=== PATIENT | female | born 1960 | race Caucasian/White ===

== ENCOUNTER 2023-07-30 07:35 | Day surgery (SDC) | payer MEDICARE, BC, SELFPAY ==
--- NOTE | 2023-07-29 06:15 | EKG_ITS ---
[facility] Test Date: 2023-07-29 Pat Name: RAQUEL NEW Department: Room: - Gender: Female Rn First Assistant: DIALLO : 1960 Requested By: Austin Whitman Order Number: [id number] Reading MD: Austin Whitman Measurements Intervals [place] Rate: 71 P: 41 [place]: 136 QRS: 54 QRSD: 89 T: 59 QT: 358 QTc: 391 Interpretive Statements SINUS RHYTHM LOW QRS VOLTAGE IN PRECORDIAL LEADS Compared to ECG 10/10/2022 17:07:03 Low QRS voltage now present /store/S0/[id number].pdf
[2023-07-29 06:59] VITALS: BMI 31.4
[2023-07-29 08:53] LABS: Basophils % (Auto) 0 % (0-2.5); Eosinophils # (Auto) 0.3 Thou/mm3 (0.0-0.5); Eosinophils % (Auto) 7 % (0-10); Hematocrit 40.1 % (36.0-46.0); Hemoglobin 12.9 g/dL (12.0-16.0); Immature Granulocytes % (Auto) 0 % (0-0); Immature Granulocytes Auto 0.01 Thou/mm3 (0.00-0.00); Lymphocytes # (Auto) 0.8 Thou/mm3 (1.0-4.8); Lymphocytes % (Auto) 17 % (10-50); Mean Corpuscular HGB Conc 32.2 g/dl (31.0-37.0); Mean Corpuscular Hemoglobin 28.6 pg (25.0-35.0); Mean Corpuscular Volume 89 fL (80-100); Monocytes # (Auto) 0.4 Thou/mm3 (0.0-0.8); Monocytes % (Auto) 8 % (0-12); Neutrophils # (Auto) 3.2 Thou/mm3 (1.8-7.7); Neutrophils % (Auto) 68 % (37-80); Nucleated Red Blood Cell % 0 /100 WBC (0); Platelet Count 205 Thou/mm3 (140-440); RDW Standard Deviation 45.1 fL (36.4-46.3); Red Blood Count 4.51 Miln/mm3 (4.00-5.20); White Blood Count 4.7 Thou/mm3 (3.6-11.0)
[2023-07-29 09:16] LABS: Alanine Aminotransferase 46 U/L (10-49); Albumin, Serum 4.2 gm/dL (3.4-4.8); Albumin/Globulin Ratio 1.4 (1.2-2.2); Alkaline Phosphatase 142 U/L (46-116); Anion Gap 8 (7-16); Aspartate Amino Transferase 44 U/L (0-34); BUN/Creatinine Ratio 20 Ratio (12-20); Bilirubin,Total 0.2 mg/dL (0.3-1.2); Blood Urea Nitrogen 16 mg/dL (9-23); Calcium 9.2 mg/dL (8.3-10.6); Calcium (Corrected) 9.2 mg/dL (8.5-10.1); Carbon Dioxide 24.2 mMol/L (20.0-31.0); Chloride 109 mMol/L (98-107); Creatinine (Component) 0.8 mg/dL (0.6-1.3); Estimated Creatinine Clearance 73.1 mL/min (>60); Glucose 104 mg/dL (74-106); Osmolality,Calculated 282 (275-295); Potassium 4.5 mMol/L (3.4-5.1); Sodium 141 mMol/L (136-145); Total Protein 7.2 gm/dL (5.7-8.2); eGFR > 60 See Note
[2023-07-30] VITALS (8 sets, daily range): BP systolic 117–138; BP diastolic 80–98; PULSE 70–80; RESP 12–16; TEMP 36.3–36.7; O2SAT 91–97; BMI 31.2
[2023-07-30] MEDS: RINGERS LACTATED 1000 ML 1,000 ML 20 ML IV (08:32)
--- NOTE | 2023-07-30 10:16 | SUR.PHASEI ---
Pt arrived to PACU via gurney drowsy but arouses to verbal stimuli, breathing unlabored, dressing to left inguinal region clean, dry, and intact, report from Kolby ORTEGA and Dr Morgan.
--- NOTE | 2023-07-30 10:16 | PD.SUROPNT ---
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 After administration of general tracheal anesthesia, patient's left groin was prepped and draped in standard surgical manner. After administration of local anesthesia an approximately 4 cm incision was made in left inguinal crease and dissection was deepened into soft tissue. Fatou's fascia was divided. Patient was noted to have clustered and enlarged lymph nodes approximately 3 cm in diameter. The mass was circumferentially dissected off surrounding tissue. The smaller veins and lymphatic channels were ligated with application of endoclips. Hemostasis was adequate and satisfactory. The area was copiously and thoroughly washed and irrigated, all the fluids were suctioned and the suction fluid returned clear. There was no bleeding or lymph leak noted. Fascia reapproximated with interrupted sutures using 2-0 Vicryl. Subcutaneous tissue closed with interrupted sutures using 3-0 Vicryl and the incision was closed with 4-0 Monocryl in subcuticular fashion. Dermabond and pressure sterile dressings applied. Patient tolerated procedure well. She was extubated, breathing spontaneously and without difficulty and was transferred to postanesthesia care in stable condition. Instruments, needles and sponge counts were reported to be correct x 2. Anesthesia GETA and local Pathology / specimen Other (Left inguinal lymph nodes) Estimated Blood Loss 5 Condition Stable Disposition PACU Surgeon Austin Whitman MD Surgical Staff Operation Date: 07/30/23 10:00 Case Staff Anesthesiologist: Paras Morgan RNadjunct art history instructor: Karen Gonzales
[2023-07-30] MEDS: fentaNYL CIT INJ 50 mCg/ML AMP 2ML IV (10:38)
[2023-07-30] MEDS: HYDROcodone/APAP 5/325 TABLET 1 TAB PO (10:56)
--- NOTE | 2023-07-30 11:32 | SUR.PHASEII ---
Pt awake, alert, able to follow commands, breathing unlabored, dressing to left inguinal region clean, dry, and intact, pt able to dress self and ambulate to wheelchair with steady gait, discharge instructions given with daughter present, all questions answered, pt discharged via wheelchair with all belongings and copies of discharge paperwork.
--- NOTE | 2023-07-31 15:51 | PD.ANESPROG ---
Documentation for date of: 07/31/23 POST ANESTHESIA NOTE: Patient had general LMA anesthesia for L groin lymph node excision yesterday. I just called and spoke with her on the phone and she denied any problems from anesthesia. Paras Morgan MD Anesthesia Progress Note Progress Note Most recent Vital Signs: Last Vital Signs Temp 97.6 F 07/30/23 11:20 Pulse 72 07/30/23 11:20 Resp 14 07/30/23 11:20 BP 128/85 H 07/30/23 11:20 Pulse Ox 95 07/30/23 11:20 O2 Flow Rate 2 07/30/23 10:50
== END 2023-07-30 11:32 | disposition home or self-care (01) ==
PROVIDERS: Anesthesiology; PCP Internal Medicine; Referring Provider Surgery; Visit Provider Surgery
PROC: (CPT 38500; principal; 2023-07-30 09:45)
DX: C77.4 Secondary and unspecified malignant neoplasm of inguinal and lower limb lymph nodes (principal); Z01.810 Encounter for preprocedural cardiovascular examination; Z85.048 Personal history of other malignant neoplasm of rectum, rectosigmoid junction, and anus; K21.9 Gastro-esophageal reflux disease without esophagitis
CPT/HCPCS: 38760; 36415; 80053; 85025; 93005; A4649; J0690; J1100; J2704; J2765; J3010; J3490; J7120; Q9968; A9270

== ENCOUNTER → 2023-12-30 | Outpatient (CLI) | payer BC, SELFPAY ==
[2023-12-30 15:30] LABS: Basophils % (Auto) 1 % (0-2.5); Eosinophils # (Auto) 0.2 Thou/mm3 (0.0-0.5); Eosinophils % (Auto) 3 % (0-10); Hematocrit 42.9 % (36.0-46.0); Hemoglobin 13.8 g/dL (12.0-16.0); Immature Granulocytes % (Auto) 0 % (0-0); Immature Granulocytes Auto 0.01 Thou/mm3 (0.00-0.00); Lymphocytes # (Auto) 0.9 Thou/mm3 (1.0-4.8); Lymphocytes % (Auto) 18 % (10-50); Mean Corpuscular HGB Conc 32.2 g/dl (31.0-37.0); Mean Corpuscular Hemoglobin 28.2 pg (25.0-35.0); Mean Corpuscular Volume 88 fL (80-100); Monocytes # (Auto) 0.3 Thou/mm3 (0.0-0.8); Monocytes % (Auto) 7 % (0-12); Neutrophils # (Auto) 3.8 Thou/mm3 (1.8-7.7); Neutrophils % (Auto) 72 % (37-80); Nucleated Red Blood Cell % 0 /100 WBC (0); Platelet Count 254 Thou/mm3 (140-440); RDW Standard Deviation 43.8 fL (36.4-46.3); White Blood Count 5.3 Thou/mm3 (3.6-11.0)
== END | disposition home or self-care (01) ==
LOC: COPL 14:44
PROVIDERS: PCP Internal Medicine; Referring Provider Internal Medicine; Visit Provider Internal Medicine
DX: D64.9 Anemia, unspecified (principal)
CPT/HCPCS: 36415; 85025

== ENCOUNTER 2024-01-28 08:28 | Outpatient (RCR) | payer BC, SELFPAY ==
--- NOTE | 2024-01-28 10:16 | CTCFLWUP_ITS ---
[facility] [address], [place] [address] Follow-up note Date: 01/28/2024 MR#: [id number] Name: RAQUEL NEW : 1960 Account #: ?? Identification. 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 Underwent 5-FU mitomycin and radiation therapy 09/06/2022 through 12/07/2022 5940 cGy completed 2022. Unfortunately recurrence noted in the left inguinal region initially suspected by PET of 03/01/2023 and confirmed by biopsy 07/30/2023 of the left inguinal region. Patient had additional treatments to the left groin region with 5-FU sensitization 5040 cGy completed 10/24/2023. Posttreatment PET 11/19/2023 showed no pathological groin adenopathy with hypermetabolic activity right masseter likely nonspecific. Patient is experiencing some bright red bleeding via rectum and has some left groin fullness feeling. Exam today suggest that the left groin fullness appears more like radiation reaction and scar tissue and soft no gross tumor or tenderness around the rectal area. Most recent CBC 12/30/2023 WBC 5.3 hemo globin 13.8 platelets 2 54,000 [address] scan abdomen pelvis with IV contrast has been ordered by Dr. Rodriguez and I will discuss with the p atient later this week. Electronically signed by: Juan C Pillai MD, [email or web address] 01/28/2024 10:13 AM
== END 2024-02-25 23:59 | disposition home or self-care (01) ==
LOC: SCTC 08:28
PROVIDERS: PCP Internal Medicine; Referring Provider Internal Medicine; Visit Provider Radiology Therapeutic Radiology
DX: C44.520 Squamous cell carcinoma of anal skin (principal); C77.4 Secondary and unspecified malignant neoplasm of inguinal and lower limb lymph nodes; Z92.21 Personal history of antineoplastic chemotherapy; Z92.3 Personal history of irradiation
CPT/HCPCS: 99212; G0463

== ENCOUNTER → 2024-01-28 | Outpatient (CLI) | payer BC, SELFPAY ==
[2024-01-28 14:21] LABS: Basophils % (Auto) 1 % (0-2.5); Eosinophils # (Auto) 0.2 Thou/mm3 (0.0-0.5); Eosinophils % (Auto) 4 % (0-10); Hematocrit 40.6 % (36.0-46.0); Hemoglobin 13.3 g/dL (12.0-16.0); Immature Granulocytes % (Auto) 0 % (0-0); Immature Granulocytes Auto 0.01 Thou/mm3 (0.00-0.00); Lymphocytes % (Auto) 19 % (10-50); Mean Corpuscular HGB Conc 32.8 g/dl (31.0-37.0); Mean Corpuscular Hemoglobin 28.3 pg (25.0-35.0); Mean Corpuscular Volume 86 fL (80-100); Monocytes # (Auto) 0.4 Thou/mm3 (0.0-0.8); Monocytes % (Auto) 7 % (0-12); Neutrophils # (Auto) 3.5 Thou/mm3 (1.8-7.7); Neutrophils % (Auto) 69 % (37-80); Nucleated Red Blood Cell % 0 /100 WBC (0); Platelet Count 241 Thou/mm3 (140-440); RDW Standard Deviation 44.1 fL (36.4-46.3); White Blood Count 5.1 Thou/mm3 (3.6-11.0)
[2024-01-28 14:51] LABS: Alanine Aminotransferase 24 U/L (10-49); Albumin, Serum 4.6 gm/dL (3.4-4.8); Albumin/Globulin Ratio 1.8 (1.2-2.2); Alkaline Phosphatase 171 U/L (46-116); Anion Gap 8 (7-16); Aspartate Amino Transferase 20 U/L (0-34); BUN/Creatinine Ratio 19 Ratio (12-20); Bilirubin,Total 0.3 mg/dL (0.3-1.2); Blood Urea Nitrogen 15 mg/dL (9-23); Calcium 9.3 mg/dL (8.3-10.6); Calcium (Corrected) 9.3 mg/dL (8.5-10.1); Carbon Dioxide 26.6 mMol/L (20.0-31.0); Chloride 106 mMol/L (98-107); Creatinine (Component) 0.8 mg/dL (0.6-1.3); Globulin 2.6 gm/dL (2.3-3.5); Glucose 100 mg/dL (74-106); Osmolality,Calculated 282 (275-295); Potassium 4.1 mMol/L (3.4-5.1); Sodium 141 mMol/L (136-145); Total Protein 7.2 gm/dL (5.7-8.2); eGFR > 60 See Note
== END | disposition home or self-care (01) ==
LOC: SCTO 13:57
PROVIDERS: PCP Internal Medicine; Referring Provider Internal Medicine Hematology & Oncology; Visit Provider Internal Medicine Hematology & Oncology
DX: C44.520 Squamous cell carcinoma of anal skin (principal)
CPT/HCPCS: 36415; 80053; 85025

== ENCOUNTER → 2024-01-29 | Outpatient (CLI) | payer BC, SELFPAY ==
--- NOTE | 2024-01-29 10:00 | XR_ITS ---
Examination: CT chest with intravenous contrast CT abdomen with intravenous contrast CT pelvis with intravenous contrast 2-D coronal and sagittal reconstructions Time of exam: January 29, 2024 1016 hours Comparison PET/CT scan 11/19/2023, CT chest abdomen pelvis October 10, 2022 INDICATIONS: Diagnosis squamous cell carcinoma of the anal skin, rectal carcinoma diagnosis June 2022, patient has fatigue and diarrhea COMPARISON: PET CT scan November 19, 2023 CTDI: vol (mGy) : 20.6 DLP: (mGycm): 918 Technique: Multiple axial images of the chest, abdomen and pelvis with intravenous contrast, 3.0 mm slice thickness. Images obtained post intravenous injection Isovue 370 60 cc. 2-D sagittal and coronal reconstructions. Low dose protocols were performed. One or more of the following dose reduction techniques were used; automated exposure control, adjustment of the mA and/or KV according to patient size, use of iterative reconstruction technique. Findings: No thoracic aortic aneurysm dilatation No pulmonary artery emboli. No paratracheal tracheobronchial or bronchopulmonary adenopathy No pneumonia, pulmonary edema, pleural disease or pulmonary nodules Retrocardiac gastric hernia No interval liver or splenic lesion Absent gallbladder No pancreatic or adrenal mass No renal or ureteral calculi, no hydronephrosis Aorta normal size No abdominal or pelvic lymphadenopathy Urinary bladder intact Prominent osteopenia No pelvic mass IMPRESSION: No mediastinal adenopathy No pneumonia or pulmonary edema or pleural disease or pulmonary nodules No pathologic abdominal or pelvic lymphadenopathy No hepatic metastases depicted
== END | disposition home or self-care (01) ==
PROVIDERS: PCP Internal Medicine; Referring Provider Internal Medicine Hematology & Oncology; Visit Provider Internal Medicine Hematology & Oncology
DX: C44.520 Squamous cell carcinoma of anal skin (principal)
CPT/HCPCS: 71260; 74177; A4649; Q9967

== ENCOUNTER 2024-03-25 10:48 | Outpatient (RCR) | payer BC, SELFPAY ==
--- NOTE | 2024-03-29 20:13 | CTCFLWUP_ITS ---
Patient: RAQUEL COREA : 1960 Page 3 of 5 FOLLOW UP NOTE DATE OF SERVICE: 03/25/2024 NAME: RAQUEL COREA ACCOUNT: [id number] : 1960 AGE: 63 INTERVAL HISTORY: Complaining of incontinence of stools and it is affecting patient's life. Patient is unable to take part in any social events and unable to date. Patient also complaining of small mass protruding out of her rectum. She notices blood on tissue. 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 06/30/2022: She was seen in the emergency department because of rectal bleeding. 08/14/2022: Ms. Corea had a colonoscopy 09/21/2022: PET/CT scan 09/24/2022 - 12/07/2022: Ms. Corea was treated with chemoradiation. For the chemotherapy part she was on 5-FU and Mitomycin-C. She received a total of 5940 cGy of radiation therapy. 03/01/2023: PET/CT scan? 03/18/2023: CT-guided biopsy of the left inguinal lymph node 07/25/2023: PET/CT scan? 07/30/2023: Left inguinal lymph node excisional biopsy? OTHER MEDICAL HISTORY/CONDITIONS: ANAL CA ANEMIA HYPERLIPIDEMIA DEPRESSION FAITH -10 YRS AGO CHOLECYSTECTOMY - 15 YRS AGO FAMILY HISTORY: Mother:?LUNG SOCIAL HISTORY: Occupational?History:?RETIRED Education?Level:?Completed High School Marital?Status:? Tobacco?Pack?per?Day:?2 Tobacco?Use?Years:?30 Tobacco?Use:?QUIT?12?YRS?AGO ETOH?Use:?DENIES Drug?Note:?DENIES Social?History?Note:?LIVES?WITH? CERTIFIED NURSE HISTORY: Menarche?-?Age:?11 Menopause:?1999 :?3 Live?Births:?3 Age?1st?:?14 MEDICATIONS: 1. Lipitor - 20 mg Daily 2. meloxicam - Daily 3. omeprazole - 20 mg Daily 4. Zoloft - 100 mg Daily Medications Last Reconciled by Emeli Mercer MA on 03/25/2024 ALLERGIES: No Known Allergies REVIEW OF SYSTEMS: A complete 14-point review of systems was performed and is negative except as noted in interval history. PHYSICAL EXAMINATION: VITAL SIGNS: Temperature?96.5, B/P?117/87, Oxygen?Saturation?99% Weight?184?lbs PAIN: 0 - No pain ECOG Performance Status: 2 - Symptomatic; ambulatory; capable of self-care; >50% of waking hrs. not in bed GENERAL APPEARANCE: Appears well, in no apparent distress, appropriately interactive. HEENT: Normocephalic, no temporal wasting, normal conjunctiva, no scleral icterus, normal hearing, lips without lesions, neck normal range of motion. CARDIOVASCULAR: Not assessed. PULMONARY: Normal respiratory effort, no respiratory distress or use of accessory muscles, speaking in full sentences, no tachypnea. EXTREMITIES: No pedal edema or cyanosis. SKIN: Normal skin appearance. NEUROLOGIC: Alert and oriented x4. PSHYCHIATRIC: Appropriate affect, mood normal, behavior normal, intact thought and speech. No rectal exam was performed. Patient wanted to do colonoscopy instead of clinical examination in our clinic LABORATORY DATA: I have personally reviewed and interpreted each of the patient?s relevant lab tests, abnormal findings are below: Date 03/26/24 ??WHITE?BLOOD?COUNT?(Thou/mm3) 5.1 ??RED?BLOOD?COUNT?(Miln/mm3) 4.78 ??HEMOGLOBIN?(gm/dl) 13.2 ??HEMATOCRIT?(%) 40.5 ??PLATELET?COUNT?(Thou/mm3) 241 ??NEUTROPHILS?%,?AUTO?(%) 70 ??LYMPH?%,?AUTO?(%) 19 ??NEUTROPHILS,?AUTO?(Thou/mm3) 3.6 ASSESSMENT/PLAN: 1. P16 positive squamous cell carcinoma of the anus s/p chemoradiation completed on 12/07/2022. Recurrence in the left inguinal lymph node. S/p excision on 07/30/2023. Pathology showed metastatic moderately differentiated squamous cell carcinoma, p16 positive. S/p 5-FU and radiation to the left inguinal region as well S/p treatment patient had PET CT scan PET CT scan on 11/19/2023 showed no pathological groin adenopathy or hypermetabolic activity. Activity in the right masseter was nonspecific Patient was examined by the radiation oncologist and left groin fullness was attributed to radiation reaction and scar tissue and no gross tumor no tenderness around the rectal area. 01/29/2024 CT scan do not show any mediastinal adenopathy pneumonia pulmonary edema pathological abdominal or pelvic lymphadenopathy or liver masses History of iron deficiency anemia s/p Venofer infusions. Hemoglobin has normalized. I will send the patient for colonoscopy to see if patient have any internal hemorrhoids ORDERS: Refer to urogynecologist for perennial repair Refer to GI for colonoscopy CBC CMP CEA Ferritin iron panel send vitamin B12 RETURN TO CLINIC: 3 weeks BILLING AND COMPLIANCE: I reviewed external records from providers outside my specialty as summarized above. I spent a total of 50 minutes on this patient?s care on the day of their visit excluding time spent related to any billed procedures. This time includes time spent with the patient as well as time spent documenting in the medical record, reviewing patients records and tests, obtaining history, placing orders, communicating with other healthcare professionals, counseling the patient, family or caregiver, and/or care coordination for the diagnoses above. Electronically Signed by: Ramiro Rodriguez MD T: 8:11 PM CC: PCP: Sebastian Padgett Referring: Sebastian Padgett This document was completed utilizing speech recognition software. Grammatical errors, random word insertions, pronoun errors, and incomplete sentences are an occasional consequence of this system due to software limitations, ambient noise, and hardware issues. Any formal questions or concerns about the content, text or information contained within the body of this dictation should be directly addressed to the provider for clarification.
== END 2024-03-27 23:59 | disposition home or self-care (01) ==
LOC: SCTC 10:48
PROVIDERS: PCP Internal Medicine; Referring Provider Internal Medicine; Visit Provider Internal Medicine Hematology & Oncology
DX: C44.520 Squamous cell carcinoma of anal skin (principal); C77.4 Secondary and unspecified malignant neoplasm of inguinal and lower limb lymph nodes; R15.9 Full incontinence of feces; Z86.2 Personal history of diseases of the blood and blood-forming organs and certain disorders involving the immune mechanism
CPT/HCPCS: 99212; G0463

== ENCOUNTER → 2024-03-26 | Outpatient (CLI) | payer BC, SELFPAY ==
[2024-03-26 13:35] LABS: Basophils % (Auto) 0 % (0-2.5); Eosinophils # (Auto) 0.2 Thou/mm3 (0.0-0.5); Eosinophils % (Auto) 3 % (0-10); Hematocrit 40.5 % (36.0-46.0); Hemoglobin 13.2 g/dL (12.0-16.0); Immature Granulocytes % (Auto) 0 % (0-0); Immature Granulocytes Auto 0.01 Thou/mm3 (0.00-0.00); Lymphocytes % (Auto) 19 % (10-50); Mean Corpuscular HGB Conc 32.6 g/dl (31.0-37.0); Mean Corpuscular Hemoglobin 27.6 pg (25.0-35.0); Mean Corpuscular Volume 85 fL (80-100); Monocytes # (Auto) 0.4 Thou/mm3 (0.0-0.8); Monocytes % (Auto) 8 % (0-12); Neutrophils # (Auto) 3.6 Thou/mm3 (1.8-7.7); Neutrophils % (Auto) 70 % (37-80); Nucleated Red Blood Cell % 0 /100 WBC (0); Platelet Count 241 Thou/mm3 (140-440); RDW Standard Deviation 46.8 fL (36.4-46.3); Red Blood Count 4.78 Miln/mm3 (4.00-5.20); White Blood Count 5.1 Thou/mm3 (3.6-11.0)
[2024-03-26 13:49] LABS: Alanine Aminotransferase 20 U/L (10-49); Albumin, Serum 4.6 gm/dL (3.4-4.8); Albumin/Globulin Ratio 1.6 (1.2-2.2); Alkaline Phosphatase 133 U/L (46-116); Anion Gap 9 (7-16); Aspartate Amino Transferase 22 U/L (0-34); BUN/Creatinine Ratio 23 Ratio (12-20); Bilirubin,Total 0.5 mg/dL (0.3-1.2); Blood Urea Nitrogen 18 mg/dL (9-23); Calcium 9.5 mg/dL (8.3-10.6); Calcium (Corrected) 9.5 mg/dL (8.5-10.1); Chloride 107 mMol/L (98-107); Creatinine (Component) 0.8 mg/dL (0.6-1.3); Globulin 2.9 gm/dL (2.3-3.5); Glucose 100 mg/dL (74-106); Osmolality,Calculated 283 (275-295); Potassium 4.1 mMol/L (3.4-5.1); Sodium 141 mMol/L (136-145); Total Protein 7.5 gm/dL (5.7-8.2); eGFR > 60 See Note
[2024-03-26 14:01] LABS: Carcinoembryonic Antigen 0.6 ng/mL (0.0-5.0); Folate 17.99 ng/mL (>5.38); Vitamin B12 343 pg/mL (211-911)
[2024-03-26 14:05] LABS: Iron 62 mcg/dL (50-170)
[2024-03-26 15:19] LABS: Ferritin 40 ng/mL (7.3-270.7); Percent Iron Saturation 17 % (20-55); Total Iron Binding Capacity 345 mcg/dL (250-425); Unsaturated Iron Binding 283 (225-295)
== END | disposition home or self-care (01) ==
LOC: SCTO 11:23
PROVIDERS: PCP Internal Medicine; Referring Provider Internal Medicine Hematology & Oncology; Visit Provider Internal Medicine Hematology & Oncology
DX: C44.520 Squamous cell carcinoma of anal skin (principal)
CPT/HCPCS: 36415; 80053; 82378; 82607; 82728; 82746; 83540; 83550; 85025

== ENCOUNTER → 2024-04-28 | Outpatient (CLI) | payer BC, SELFPAY ==
--- NOTE | 2024-04-28 08:00 | XR_ITS ---
Examination: Screening digital mammography, bilateral Computer aided detection 3-D breast Tomosynthesis, bilateral Date and time of exam: April 28, 2024 0742 hours Compared to mammograms dating to March 06, 2017 Indication: Screening Technique: Nonmagnified MLO, CC views of the breasts to been obtained, reconstructed from 3-D Tomosynthesis images. R2 computer aided detection program utilized for evaluation of suspicious masses and/or abnormal calcifications. 3-D Tomosynthesis images obtained. Findings: The breasts are heterogeneously dense, which may obscure small masses Breast biopsy marker outer left breast Interval 10 mm mass spiculated margins inner upper left breast Impression: BI-RADS Category 0: Incomplete: Need additional imaging evaluation Interval 10 mm mass spiculated margins inner upper left breast, recommend follow-up spot tomographic views of this mass as well as bilateral breast sonography to complete the workup.
== END | disposition home or self-care (01) ==
LOC: CDIM 07:36
PROVIDERS: Referring Provider Internal Medicine; Visit Provider Internal Medicine
DX: Z12.31 Encounter for screening mammogram for malignant neoplasm of breast (principal); N63.22 Unspecified lump in the left breast, upper inner quadrant
CPT/HCPCS: 77063; 77067

== ENCOUNTER 2024-05-04 09:49 | Outpatient (AMB) | payer BC, SELFPAY ==
--- NOTE | 2024-05-04 09:57 | GSCOFFNT_ITS ---
Vital Signs - [facility] 05/04/24 09:58 Height 1.63 m Height Method Stated Weight 83.603 kg Weight Measurement Method Standing Scale BMI 31.4 BP 122/83 Blood Pressure Source Automatic Cuff Blood Pressure Location Left Upper Arm Position Sitting Respiration 18 Pulse 68 Pulse Source Monitor Temp 96.6 F L Temp Source Temporal Artery Scan Pulse Oximetry (%) 97 Oxygen Delivery Method Room Air Med/Allergies Allergies & Medications Allergies No Known Allergies Allergy (Verified 05/04/24 09:58) Medication Reconciliation sertraline 50 mg tablet (Zoloft) 100 mg PO HS #0 tabs 10/09/16 [History Confirmed 05/04/24] atorvastatin 20 mg tablet (Lipitor) 20 mg PO HS 10/28/20 [History Confirmed 05/04/24] omeprazole 20 mg capsule,delayed release 20 mg PO HS 03/18/23 [History Confirmed 05/04/24] meloxicam 7.5 mg tablet 7.5 mg PO HS 07/29/23 [History Confirmed 05/04/24] docusate sodium 100 mg capsule (Colace) 100 mg PO BID #40 caps 07/30/23 [Rx Confirmed 05/04/24] hydrocodone 5 mg-acetaminophen 325 mg tablet 1 tab PO Q6H PRN pain (scale score 7-10) #15 tabs 07/30/23 [Rx Confirmed 05/04/24] MA Intake Visit Data Collection New Patient or Established: Established Patient (seen at [facility] within 3 years) Seen by Clinical Staff ONLY (RN/MA): No Reason for Visit:: FOLLOW UP Pain Present Currently: No Twisting Frame Fixer Required: No PCP or OBGYN visit in last 3 months: Yes Hx Now: No Do You Feel Safe at Home: Yes Authorities Contacted: N/A Smoking Status Smoking Status: Former smoker Immunization / Flu Flu Vaccine in the Last 12 Months: No Flu Vaccine Exclusion Criteria: No Exclusion Criteria Past Medical History Past Medical History NEUROLOGIC: Negative Neurological Disorders, Cerebrovascular Accident, Transient Ischemic Attacks (TIA), Dementia, Alzheimer's Disease, Parkinson's Disease, Brain Tumor, Meningitis, Seizures, Epilepsy, Multiple Sclerosis, Cerebral Palsy, Amyotrophic Lateral Sclerosis (ALS/Nichole Gehrig's), Guillain-[place] Syndrome, Spina Bifida, Paralysis, Peripheral Neuropathy, Coronado's Palsy, Subdural Hematoma, Migraine, Head Trauma, Spinal Cord Injury or Traumatic Brain Injury CARDIAC: Positive Cardiac Disorders and Hypercholesterolemia; Negative Myocardial Infarction, Cardiac Arrhythmia, Atrial Fibrillation, Angina, Heart Murmur, Coronary Artery Disease, Atherosclerotic Heart Disease, Peripheral Vascular Disease, Aneurysm, Congestive Heart Failure, Congenital Heart Disease, Valvular Heart Disease, Rheumatic Fever, Cardiomyopathy, Edema, Pericarditis, Cellulitis, Deep Vein Thrombosis, Hypertension, Hypotension or Varicose Veins RESPIRATORY: Positive Pneumonia (many yrs ago); Negative Chronic Obstructive Pulmonary Disease (COPD), Asthma, Bronchitis, Emphysema, Pulmonary Fibrosis, Cystic Fibrosis, Tuberculosis, Pulmonary Embolism, Pulmonary Edema or Sleep Apnea GASTROINTESTINAL: Positive Gastrointestinal Disorders, Colorectal Cancer (rectal) and Obesity; Negative Hepatitis, Cirrhosis, Pancreatitis, Celiac Disease, Gall Bladder Disease, Gastrointestinal Bleed, Esophageal Varices, Cortez's Esophagus, Colitis, Ulcerative Colitis, Diverticulitis, Diverticulosis, Ulcer, Irritable B owel, Crohn's Disease, Obstructive Bowel, Hiatal Hernia, Hemorrhoids or Gastroesophageal Reflux Disease GENITOURINARY: Negative Genitourinary Disorders, Renal Disease, Kidney Stones, Polycystic Kidney Disease, Neurogenic Bladder, Inguinal Hernia, Dialysis or Prostate Cancer REPRODUCTIVE: Positive Previous Pregnancies (); Negative Breast Cancer, Endometriosis, Pelvic Inflammatory Disease, Testicular Cancer or Uterine Prolapse MUSCULOSKELETAL: Positive Arthritis (knee) and Fractures (ribs and wrist fracture); Negative Muscular Dystrophy, Myasthenia Gravis, Marfan's Syndrome, Bone Cancer, Rheumatoid Arthritis, Osteoporosis, Degenerative Disk Disease, Gout, Scoliosis, Carpal Tunnel Syndrome, Fibromyalgia, Degenerative Joint Disease, Osteomyelitis or Poliovirus ENT: Positive Deafness (loss of hearing, uses hearing aid to left); Negative Cataracts, Glaucoma, Blind, Retinal Detachment, Macular Degeneration, Ear Infection, Head Trauma or Eye Prosthesis ENDOCRINE: Negative Endocrine Disorders, Diabetes Mellitus Type 1, Diabetes Mellitus Type 2, Hypoglycemia, Milton's Syndrome, [place]'s Disease, Hyperthyroidism, Hypothyroidism, Parathyroid Disease, Pituitary Disease, Systemic Lupus Erythematosus, Syndrome of Inappropriate Antidiuretic Hormone (SIADH), Adrenal Disease or Graves' Disease HEMATOLOGIC: Positive Blood Disorders and Anemia; Negative Leukemia, Hemophilia, Thalassemia, Sickle Cell Disease or Clotting Problems PSYCHO/SOCIAL: Positive 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), Depression and Anxiety; Negative Psychiatric Problems, Schizophrenia, Bipolar Disorder, Behavior Problems, Self-Mutilation, Attention Deficit Disorder, Attention Deficit Hyperactivity Disorder, Depression, Post Traumatic Stress Disorder or Eating Disorder OTHER HISTORY: Positive Hospitalization (surgery), Blood Transfusions, Chemotherapy, Radiation Therapy, Cancer and Colorectal Cancer (rectal); Negative Down Syndrome, Autism, Developmental Delay, Shingles, Falls, Blood Tra nsfusion Reaction, Anesthesia Reactions, Organ Transplant, Hyperbaric Therapy, MRSA, VRSA, Vancomycin-Resistant Enterococci, Human Immunodeficiency Virus (HIV), Chicken Pox, Measles, Mumps, Rubella (Spanish Measles), Pertussis, Clostridium Difficile, Breast Cancer, Cervical Cancer, Lung Cancer, Ovarian Cancer, Prostate Cancer or Testicular Cancer Family History FAMILY HISTORY: Positive Family Respiratory Disorders and Family Cancer; Negative Family Psychiatric Problems, Family Cardiac Disorders, Family Gastrointestinal Problems, Family Surgery or Family Anesthesia Reaction Surgical History SURGICAL: Positive Hysterectomy; Negative Cardiac Surgery, Open Heart Surgery, Coronary Artery Bypass Graft, Valve Replacement, Vascular Surgery, Coronary Stent, Cardiac Catheterization, Pacemaker, Angiogram, Auto Implanted Cardiovert Defib, Carotid Endarterectomy, Endocrine Surgery, Thyroidectomy, Ear Surgery, Tympanostomy Tube, Eye Surgery, Nose Surgery, Oral Surgery, Tonsillectomy, Adenoidectomy, Cochlear Implant, Corneal Transplant, Throat Surgery, Abdominal Surgery, Tracheostomy, Gastric Bypass Surgery, Gastrostomy, Bowel Surgery, Nephrectomy, Transurethral Resection, Joint Replacement, Amputation, Open Reduction Internal Fixation, Arthroscopy, Neurologic Surgery, Brain Shunt, Mastectomy, Lumpectomy, Tubal Ligation, Section or Organ Transplant Social History SMOKING STATUS: Smoking status: Former smoker SECOND HAND EXPOSURE: second hand exposure: No ALCOHOL: Alcohol Intake: Never HOUSING: Housing: House LIVES WITH: Lives With: Spouse HPI HPI Narrative 63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 Pt states that for the past few months she has noticed bleeding per rectum which occurs every 3-4 days, usually with a BM but sometimes spontaneously, which is bright red and contains clots. She indicates it is about the size of a half dollar and she has not had any anemia, and states her BMs are more regular of late as she is taking fiber and eating a healthier diet overall. She denies any abdominal pain, perianal pain, swelling and itching, and is purposely losing weight as she is more active now, currently walking 3 miles daily. 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 I will schedule colonoscopy MADDY. All questions were answered and pt understands benefits/risks Advanced Care Planning Advance care planning discussed with:: patient Office Procedures GNS Level of Care Nursing/Assessment Patient Status: Established Patient Nursing Assessment/Reassesment: Medication Reconciliation, Update PMH in EMR and Vital Signs Coordination of Care: Complex Care and Chronic Disease 1-5, Consent,records obtained, informed consent, Education Simp Pt/Fam, Results/Orders obtained and Staff clarify orders Established Patient Charge Established Patient Point Assignment: 90 Established Patient Point Charge: EP Level 3 (80-115) Patient Portal Questionaires Social History Living Situation History Housing: House Housing Other:: Patient resides at home with spouse. Tobacco History Smoking Status: Former smoker Second Hand Smoke Exposure: No Alcohol History Alcohol Intake: Never Domestic Abuse History Do You Feel Safe at Home: Yes Review of Systems Report any current symptoms Only answer those that you have currently: Past Medical History Past Medical History Have you ever been diagnosed with any of the following: Neurological Problems Cerebrovascular Accident (CVA): No Transient Ischemic Attacks (TIA): No Dementia: No Alzheimer's Disease: No Parkinson's Disease: No Brain Tumor: No Meningitis: No Seizures: No Epilepsy: No Multiple Sclerosis: No Cerebral Palsy: No Amyotrophic Lateral Sclerosis (ALS/Nichole Gehrig's): No Guillain-[place] Syndrome: No Spina Bifida: No Paralysis: No Peripheral Neuropathy: No Coronado's Palsy: No Subdural Hematoma: No Migraine: No Head Trauma: No Spinal Cord Injury: No Traumatic Brain Injury: No Cardiology Problems Myocardial Infarction: No Cardiac Arrhythmia: No Atrial Fibrillation: No Angina: No Heart Murmur: No Coronary Artery Disease: No Atherosclerotic Heart Disease: No Peripheral Vascular Disease: No Hypercholesterolemia: Yes Aneurysm: No Congestive Heart Failure: No Congenital Heart Disease: No Valvular Heart Disease: No Rheumatic Fever: No Cardiomyopathy: No Edema: No Pericarditis: No Cellulitis: No Deep Vein Thrombosis: No Hypertension: No Hypotension: No Varicose Veins: No Respiratory Problems Chronic Obstructive Pulmonary Disease (COPD): No Asthma: No Bronchitis: No Emphysema: No Pneumonia: Yes (many yrs ago) Pulmonary Fibrosis: No Tuberculosis: No Pulmonary Embolism: No Pulmonary Edema: No Sleep Apnea: No Stomache/Intestinal Problems Hepatitis: No Cirrhosis: No Pancreatitis: No Celiac Disease: No Gall Bladder Disease: No Gastrointestinal Bleed: No Esophageal Varices: No Cortez's Esophagus: No Colitis: No Ulcerative Colitis: No Diverticulitis: No Diverticulosis: No Ulcer: No Colorectal Cancer: Yes (rectal) Irritable Bowel: No Crohn's Disease: No Obstructive Bowel: No Hiatal Hernia: No Hemorrhoids: No Gastroesophageal Reflux Disease: No Obesity: Yes Genital/Urinary Problems Renal Disease: No Kidney Stones: No Polycystic Kidney Disease: No Neurogenic Bladder: No Inguinal Hernia: No Dialysis: No Prostate Cancer: No Reproductive Problems Breast Cancer: No Endometriosis: No Pelvic Inflammatory Disease: No Previous Pregnancies: Yes () Testicular Cancer: No Uterine Prolapse: No Musculoskeletal Problems Muscular Dystrophy: No Myasthenia Gravis: No Marfan's Syndrome: No Bone Cancer: No Arthritis: Yes (knee) Rheumatoid Arthritis: No Osteoporosis: No Degenerative Disk Disease: No Gout: No Scoliosis: No Carpal Tunnel Syndrome: No Fibromyalgia: No Fractures: Yes (ribs and wrist fracture) Degenerative Joint Disease: No Osteomyelitis: No Poliovirus: No Head,Eye,Nose,Throat Problems Cataracts: No Glaucoma: No Blind: No Retinal Detachment: No Macular Degeneration: No Chronic Ear Infections: No Deafness: Yes (loss of hearing, uses hearing aid to left) Eye Prosthesis: No Endocrine Problems Diabetes Mellitus Type 1: No Diabetes Mellitus Type 2: No Hypoglycemia: No Milton's Syndrome: No [place]'s Disease: No Hyperthyroidism: No Hypothyroidism: No Parathyroid Disease: No Pituitary Disease: No Systemic Lupus Erythematosus: No Syndrome of Inappropriate Antidiuretic Hormone: No Adrenal Disease: No Graves' Disease: No Blood Problems Anemia: Yes Leukemia: No Hemophilia: No Thalassemia: No Sickle Cell Disease: No Clotting Problems: No Psychologic Problems Schizophrenia: No Recreational Drug Use: Yes (Meth clean 12 yrs) Bipolar Disorder: No Depression: Yes Anxiety: Yes Behavior Problems: No Self-Mutilation: No Attention Deficit Disorder: No Attention Deficit Hyperactivity Disorder: No Depression: No Post Traumatic Stress Disorder: No Eating Disorder: No Other Problems Hospitalization: Yes (surgery) Down Syndrome: No Autism: No Developmental Delay: No Shingles: No Falls: No Blood Transfusions: Yes Blood Transfusion Reaction: No Anesthesia Reactions: No Organ Transplant: No Chemotherapy: Yes Radiation Therapy: Yes Hyperbaric Therapy: No MRSA: No VRSA: No Vancomycin-Resistant Enterococci: No Human Immunodeficiency Virus (HIV): No Chicken Pox: No Measles: No Mumps: No Rubella (Spanish Measles): No Pertussis: No Clostridium Difficile: No Cancer: Yes Cervical Cancer: No Lung Cancer: No Ovarian Cancer: No Surgical History Carotid Endarterectomy: No Coronary Artery Bypass Graft: No Valve Replacement: No Hysterectomy: Yes Pacemaker: No Thyroidectomy: No
[2024-05-04 09:58] VITALS: BP 122/83; PULSE 68; RESP 18; TEMP 35.9; O2SAT 97; BMI 31.4
== END 2024-05-04 10:20 | disposition home or self-care (01) ==
LOC: HODSRG 09:49
PROVIDERS: PCP Internal Medicine; Referring Provider Internal Medicine; Supervising Provider Surgery; Visit Provider Surgery
DX: C21.0 Malignant neoplasm of anus, unspecified (principal)
CPT/HCPCS: 99213; G0463

== ENCOUNTER → 2024-05-20 | Outpatient (CLI) | payer BC, SELFPAY ==
[2024-05-21 09:18] LABS: BVAG Candida Negative (Negative); Bacterial Vaginosis Markers Negative (Negative); Candida glabrata Negative (Negative); Candida krusei PCR Negative (Negative); Trichomonas Negative (Negative)
== END | disposition home or self-care (01) ==
LOC: SLDO 15:50
PROVIDERS: Referring Provider Specialist; Visit Provider Specialist
DX: A59.01 Trichomonal vulvovaginitis (principal); B37.89 Other sites of candidiasis; N76.0 Acute vaginitis
CPT/HCPCS: 81514

== ENCOUNTER → 2024-05-21 | Outpatient (CLI) | payer BC, SELFPAY ==
--- NOTE | 2024-05-21 09:00 | XR_ITS ---
Examination: Breast ultrasound complete, bilateral Date and time of exam: May 21, 2024 0914 hours INDICATIONS: Mammogram April 28, 2024 10 mm mass inner upper left breast Technique: Real-time grayscale ultrasonographic imaging bilateral breasts, including all 4 quadrants as well as nipple retroareolar and axillary regions. Findings: Sonographic images right breast 3:00 nodule 4 x 3 mm circumscribed 3:00 nodule circumscribed 6 x 6 mm 6:00 oval mass indistinct margins 6 x 6 mm 10:00 nodule circumscribed 6 x 6 mm 10:00 nodule lobular margins 9 x 8 mm Sonographic images left breast 12:00 nodule circumscribed 10 x 12 mm 2:00 nodule intramammary lymph node 8 x 10 mm 3:00 nodule lobular margins 2 x 3 mm 3:00 cyst 4 x 3 mm 3:00 nodule lobular margins breast biopsy marker 5 x 5 mm IMPRESSION: BI-RADS Category 4: Suspicious for malignancy Suspicious nodule 6:00 position right breast, biopsy is needed to exclude breast carcinoma Continued 6 month bilateral breast sonography follow-up is strongly recommended to document stability of multiple solid nodules described above
--- NOTE | 2024-05-21 10:00 | XR_ITS ---
Examination: Diagnostic digital mammography, unilateral, left Computer aided detection 3-D breast Tomosynthesis, unilateral Date and time of exam: May 21, 2024 0859 hours INDICATIONS: Mammogram April 28, 2024 10 mm mass spiculated margins upper inner left breast Technique: Nonmagnified MLO, CC views of the left breast have been obtained, reconstructed from 3-D Tomosynthesis images. R2 computer aided detection program utilized for evaluation of suspicious masses and/or abnormal calcifications. 3-D Tomosynthesis images obtained. Findings: The breast is heterogeneously dense, which may obscure small masses Focal asymmetry remains inner left breast although circumscribed on this study Impression: BI-RADS category 3: Probably benign findings One additional 6 month left mammogram follow-up is needed
== END | disposition home or self-care (01) ==
PROVIDERS: PCP Internal Medicine; Referring Provider Internal Medicine; Visit Provider Internal Medicine
DX: R92.332 Mammographic heterogeneous density, left breast (principal); N63.15 Unspecified lump in the right breast, overlapping quadrants
CPT/HCPCS: 76641; 77061; 77065; G0279

== ENCOUNTER 2024-05-28 07:20 | Day surgery (SDC) | payer BC, SELFPAY ==
[2024-05-27 13:59] VITALS: BMI 30.2
[2024-05-28] VITALS (10 sets, daily range): BP systolic 92–112; BP diastolic 48–78; PULSE 58–77; RESP 11–19; TEMP 36.3–36.7; O2SAT 93–98; BMI 30.4
[2024-05-28] MEDS: RINGERS LACTATED 1000 ML 1,000 ML 125 ML IV (09:07)
[2024-05-28] MEDS: fentaNYL CIT INJ 50 mCg/ML AMP 2ML (ASD USE ONLY) IV (09:11)
[2024-05-28] MEDS: DiphenhydrAMINE INJ 50 MG/ML VIAL 25 MG IV (09:14)
[2024-05-28] MEDS: MIDAZOLAM INJ 1 MG/ML VIAL 2 ML (ASD USE ONLY) 2 MG IV (09:21)
[2024-05-28] MEDS: SIMETHICONE 40 MG/0.6 ML ORAL SYRINGE PO (09:24)
--- NOTE | 2024-05-28 09:31 | SUR.PHASEII ---
PATIENT INTO RECOVERY WITH NO ACUTE DISTRESS NOTED, V/S STABLE, NO COMPLAINTS OF PAIN OR NAUSEA AT THIS TIME. PATIENT PROVIDED WITH A WARM BLANKET. REPORT RECEIVED FROM BRANDT ORTEGA.
--- NOTE | 2024-05-28 10:25 | SUR.PHASEII ---
D/C INSTRUCTIONS GIVEN TO PATIENT'S DAUGHTER DIMITRIOS VIA TELEPHONE. PATIENT D/C HOME ACCOMPANIED BY PATIENT'S GRANDDAUGHTER LEATHA.
== END 2024-05-28 10:25 | disposition home or self-care (01) ==
PROVIDERS: PCP Internal Medicine; Referring Provider Surgery; Visit Provider Surgery
PROC: 0DBE8ZX Excision of Large Intestine, Via Natural or Artificial Opening Endoscopic, Diagnostic (ICD-10-PCS; CPT 45380; principal; 2024-05-28 08:30)
DX: K57.31 Diverticulosis of large intestine without perforation or abscess with bleeding (principal); Z85.048 Personal history of other malignant neoplasm of rectum, rectosigmoid junction, and anus
CPT/HCPCS: 45378; J1200; J2250; J3010; J7120; A9270

== ENCOUNTER 2024-06-04 09:19 | Outpatient (RCR) | payer BC, SELFPAY ==
--- NOTE | 2024-06-04 02:02 | CTCFLWUP_ITS ---
Patient: CHRISTINA COREA : 1960 Page 6 of 7 FOLLOW UP NOTE DATE OF SERVICE: 06/03/2024 NAME: CHRISTINA COREA ACCOUNT: [id number] : 1960 AGE: 63 summary Anmol Vasquez presents for follow-up of rectal bleeding and recent colonoscopy results, which showed moderate diverticulosis without evidence of bleeding or hemorrhoids. She reports ongoing rectal bleeding, likely due to constipation and straining. The patient has mild iron deficiency and multiple breast nodules, with recent imaging showing BIRADS 3 findings. Plans include dietary changes, iron supplementation, further breast imaging, and close monitoring. INTERVAL HISTORY: Anmol Vasquez presents for follow-up of rectal bleeding and recent colonoscopy results. She reports ongoing rectal bleeding despite the colonoscopy findings. The patient mentions that she is still experiencing rectal bleeding, which has been a persistent issue. She expresses concern about this symptom continuing despite the recent colonoscopy. The patient acknowledges that she has not been following a plant-based diet as recommended, which may be contributing to her gastrointestinal issues. She reports experiencing constipation and straining during bowel movements, which could be exacerbating the bleeding. Christina denies feeling any abnormalities or pain in her breasts. She has not performed self-examinations recently but confirms the absence of breast pain. The patient reports that she was unable to attend her scheduled gynecological appointment for vaginal screening. However, she mentions that the home health billing specialist informed her that everything appeared normal, with a promise to notify her if any concerns arose. Medical History - Moderate diverticulosis in the descending and sigmoid colon - Iron deficiency Surgical History - Colonoscopy (recent, exact date not specified) Medications and Supplements - Iron tablet - Take one tablet every other day or Saturday, Saturday, and Saturday - Stool softeners - Take daily Social History - Diet: Patient reports not following a plant-based diet, leading to constipation Review of Systems Gastrointestinal: Positive for rectal bleeding, constipation. 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 06/30/2022: She was seen in the emergency department because of rectal bleeding. 08/14/2022: Ms. Corea had a colonoscopy 09/21/2022: PET/CT scan 09/24/2022 - 12/07/2022: Ms. Corea was treated with chemoradiation. For the chemotherapy part she was on 5-FU and Mitomycin-C. She received a total of 5940 cGy of radiation therapy. 03/01/2023: PET/CT scan? 03/18/2023: CT-guided biopsy of the left inguinal lymph node 07/25/2023: PET/CT scan? 07/30/2023: Left inguinal lymph node excisional biopsy? OTHER MEDICAL HISTORY/CONDITIONS: ANAL CA ANEMIA HYPERLIPIDEMIA DEPRESSION FAITH -10 YRS AGO CHOLECYSTECTOMY - 15 YRS AGO FAMILY HISTORY: Mother:?LUNG SOCIAL HISTORY: Occupational?History:?RETIRED Education?Level:?Completed High School Marital?Status:? Tobacco?Pack?per?Day:?2 Tobacco?Use?Years:?30 Tobacco?Use:?QUIT?12?YRS?AGO ETOH?Use:?DENIES Drug?Note:?DENIES Social?History?Note:?LIVES?WITH? CABLE MAINTAINER HISTORY: Menarche?-?Age:?11 Menopause:?2000 :?3 Live?Births:?3 Age?1st?:?14 MEDICATIONS: 1. Lipitor - 20 mg Daily 2. meloxicam - Daily 3. omeprazole - 20 mg Daily 4. Zoloft - 100 mg Daily Medications Last Reconciled by Emeli Mercer MA on 06/03/2024 ALLERGIES: No Known Allergies REVIEW OF SYSTEMS: A complete 14-point review of systems was performed and is negative except as noted in interval history. PHYSICAL EXAMINATION: VITAL SIGNS: PAIN: 0 - No pain ECOG Performance Status: 0 - Asymptomatic and fully active GENERAL APPEARANCE: Appears well, in no apparent distress, appropriately interactive. HEENT: Normocephalic, no temporal wasting, normal conjunctiva, no scleral icterus, normal hearing, lips without lesions, neck normal range of motion. CARDIOVASCULAR: Not assessed. PULMONARY: Normal respiratory effort, no respiratory distress or use of accessory muscles, speaking in full sentences, no tachypnea. EXTREMITIES: No pedal edema or cyanosis. SKIN: Normal skin appearance. NEUROLOGIC: Alert and oriented x4. PSHYCHIATRIC: Appropriate affect, mood normal, behavior normal, intact thought and speech. No rectal exam was performed. Patient wanted to do colonoscopy instead of clinical examination in our clinic LABORATORY DATA: I have personally reviewed and interpreted each of the patient?s relevant lab tests, abnormal findings are below: Laboratory, Imaging, and Diagnostic Test Results - Colonoscopy: - Moderate diverticulosis in the descending colon and sigmoid colon - No evidence of diverticular bleeding - No hemorrhoids - Mammogram (05/21/2024): - BIRADS 3, probably benign findings - Breast Ultrasound (05/01/2024): - Left breast: - 4x3 mm nodule - 6x6 mm nodule - 6x8 mm nodule - Additional nodule (size not specified) - Right breast: Nodules present (details not specified) - Ferritin: Low (specific value not provided) Date 03/26/24 ??WHITE?BLOOD?COUNT?(Thou/mm3) 5.1 ??RED?BLOOD?COUNT?(Miln/mm3) 4.78 ??HEMOGLOBIN?(gm/dl) 13.2 ??HEMATOCRIT?(%) 40.5 ??PLATELET?COUNT?(Thou/mm3) 241 ??NEUTROPHILS?%,?AUTO?(%) 70 ??LYMPH?%,?AUTO?(%) 19 ??NEUTROPHILS,?AUTO?(Thou/mm3) 3.6 ??GLUCOSE,RANDOM?(mg/dL) 100 ??BLOOD?UREA?NITROGEN?(mg/dL) 18 ??CREATININE?(mg/dL) 0.80 ??SODIUM?(mmol/L) 141 ??POTASSIUM?(mmol/L) 4.1 ??CHLORIDE?(mmol/L) 107 ??CrCl?(CandG)?(ml/min) 74.00 ??AST/SGOT?(Unit/L) 22 ??ALT/SGPT?(Unit/L) 20 ??ALKALINE?PHOSPHATASE?(Unit/L) 133?H ??BILIRUBIN,?TOTAL?(mg/dL) 0.5 ??PROTEIN?TOTAL?(gm/dl) 7.5 ??ALBUMIN,?SERUM?(gm/dl) 4.6 ??GLOBULIN?(gm/dl) 2.9 ??ALBUMIN/GLOBULIN?RATIO 1.6 ??CALCIUM,?SERUM?(mg/dL) 9.5 ??CALCIUM?SERUM?(CORRECTED)?(mg/dL) 9.5 ??CEA?(O*)?(ng/ml) 0.6 ??TOTAL?IRON?BINDING?CAP?(S*)?(mcg/dL) 345 ??UNBOUND?IBC?(mcg/dL) 283 ASSESSMENT/PLAN: 1. P16 positive squamous cell carcinoma of the anus s/p chemoradiation completed on 12/07/2022. Recurrence in the left inguinal lymph node. S/p excision on 07/30/2023. Pathology showed metastatic moderately differentiated squamous cell carcinoma, p16 positive. S/p 5-FU and radiation to the left inguinal region as well S/p treatment patient had PET CT scan PET CT scan on 11/19/2023 showed no pathological groin adenopathy or hypermetabolic activity. Activity in the right masseter was nonspecific Patient was examined by the radiation oncologist and left groin fullness was attributed to radiation reaction and scar tissue and no gross tumor no tenderness around the rectal area. 01/29/2024 CT scan do not show any mediastinal adenopathy pneumonia pulmonary edema pathological abdominal or pelvic lymphadenopathy or liver masses History of iron deficiency anemia s/p Venofer infusions. Hemoglobin has normalized. Anmol Vasquez, female patient with rectal bleeding, recent colonoscopy, and breast imaging findings requiring follow-up. Rectal bleeding Assessment: Patient reports ongoing rectal bleeding despite recent colonoscopy. Colonoscopy findings include moderate diverticulosis in the descending and sigmoid colon without evidence of diverticular bleeding. The bleeding is likely due to dietary factors causing constipation and straining during defecation, potentially leading to mucosal injury. No hemorrhoids were identified on colonoscopy, but patient is at risk of developing them if dietary changes are not implemented. Plan: - Implement high-fiber, plant-based diet to reduce constipation and straining - Start daily stool softeners to improve bowel habits - Monitor rectal bleeding - Repeat colonoscopy in one year for surveillance - Follow up in office (appointment to be scheduled) Iron deficiency Assessment: Patient has mild iron deficiency, likely secondary to chronic rectal bleeding. Ferritin levels were checked and found to be low. Plan: - Start iron supplementation: one tablet every other day or Saturday, Saturday, and Saturday - Avoid daily iron supplementation to prevent constipation - Monitor iron levels Breast nodules Assessment: Recent diagnostic mammogram on 05/21/2024 showed BIRADS 3 (probably benign) findings. Ultrasound on 05/01/2024 revealed multiple nodules in both breasts: left breast with 4x3mm, 6x6mm, and 6x8mm nodules; right breast also with nodules (specific sizes not mentioned). Concern noted for both breasts, with suspicion for right breast nodule. Plan: - Order right breast ultrasound for further evaluation of suspicious nodule - Schedule 6-month follow-up left mammogram as recommended - Instruct patient's daughter on how to perform a breast self-examination - Monitor for any palpable changes or symptoms Follow-up Assessment: Patient requires close monitoring of multiple issues including rectal bleeding, iron deficiency, and breast nodules. Plan: - Schedule follow-up appointment in 4 weeks I will send the patient for colonoscopy to see if patient have any internal hemorrhoids ORDERS: Order # Description [id number] Unilateral + Left + Stereotactic Bx Breast + Breast Ultrasound [id number] Breast Ultrasound + Left [id number] Stereotactic Bx Breast + Left + Unilateral [id number] Unilateral + Right + Breast Ultrasound + Stereotactic Bx Breast [id number] MD Follow Up 4 Week RETURN TO CLINIC: 4 weeks Dear Anmol vasquez, Thank you for visiting today. Here is a summary of the johnson instructions: Diet and Lifestyle: - Change to a plant-based, high-fiber diet to prevent constipation and rectal bleeding - Eat more fiber-rich foods Medications: - Take one iron tablet every other day (e.g., Saturday, Saturday, Saturday) - Take stool softeners daily, even if you experience diarrhea Self-Examination: - Have a family member help you perform a breast self-exam: - Lie on a bed with both arms raised behind your head - Have them gently feel your breasts for any lumps or changes Diagnostic Tests: - Undergo right breast ultrasound (order will be placed) - Complete 6-month left mammogram follow-up Follow-up: - Return for a follow-up appointment in 4 weeks - Repeat colonoscopy in one year for surveillance Please reach out if you have any questions or concerns. Best Regards, [place] BILLING AND COMPLIANCE: I reviewed external records from providers outside my specialty as summarized above. I spent a total of 50 minutes on this patient?s care on the day of their visit excluding time spent related to any billed procedures. This time includes time spent with the patient as well as time spent documenting in the medical record, reviewing patients records and tests, obtaining history, placing orders, communicating with other healthcare professionals, counseling the patient, family or caregiver, and/or care coordination for the diagnoses above. Electronically Signed by: {Object.Sanct_ID*[email or web address]@M}, {Object.Sanct_ID*PnP.Suffix@U} D: {Object.Sanct_Date} T: {Object.Sanct_Time} CC: PCP: Sebastian Padgett Referring: Sebastian Padgett This document was completed utilizing speech recognition software. Grammatical errors, random word insertions, pronoun errors, and incomplete sentences are an occasional consequence of this system due to software limitations, ambient noise, and hardware issues. Any formal questions or concerns about the content, text or information contained within the body of this dictation should be directly addressed to the provider for clarification.
== END 2024-06-24 23:59 | disposition home or self-care (01) ==
LOC: SCTC 09:19
PROVIDERS: PCP Internal Medicine; Referring Provider Internal Medicine; Visit Provider Radiology Therapeutic Radiology
DX: C44.520 Squamous cell carcinoma of anal skin (principal); K57.90 Diverticulosis of intestine, part unspecified, without perforation or abscess without bleeding; K64.9 Unspecified hemorrhoids; E61.1 Iron deficiency; N63.20 Unspecified lump in the left breast, unspecified quadrant; N63.10 Unspecified lump in the right breast, unspecified quadrant; K62.5 Hemorrhage of anus and rectum
CPT/HCPCS: 99212; G0463

== ENCOUNTER → 2024-06-24 | Outpatient (CLI) | payer BC, SELFPAY ==
[2024-06-24 10:05] LABS: Basophils % (Auto) 1 % (0-2.5); Eosinophils # (Auto) 0.2 Thou/mm3 (0.0-0.5); Eosinophils % (Auto) 4 % (0-10); Hematocrit 39.6 % (36.0-46.0); Hemoglobin 13.1 g/dL (12.0-16.0); Immature Granulocytes % (Auto) 0 % (0-0); Immature Granulocytes Auto 0.01 Thou/mm3 (0.00-0.00); Lymphocytes # (Auto) 0.9 Thou/mm3 (1.0-4.8); Lymphocytes % (Auto) 18 % (10-50); Mean Corpuscular HGB Conc 33.1 g/dl (31.0-37.0); Mean Corpuscular Hemoglobin 28.9 pg (25.0-35.0); Mean Corpuscular Volume 87 fL (80-100); Monocytes # (Auto) 0.3 Thou/mm3 (0.0-0.8); Monocytes % (Auto) 6 % (0-12); Neutrophils # (Auto) 3.4 Thou/mm3 (1.8-7.7); Neutrophils % (Auto) 71 % (37-80); Nucleated Red Blood Cell % 0 /100 WBC (0); Platelet Count 224 Thou/mm3 (140-440); RDW Standard Deviation 44.6 fL (36.4-46.3); Red Blood Count 4.54 Miln/mm3 (4.00-5.20); White Blood Count 4.8 Thou/mm3 (3.6-11.0)
[2024-06-24 10:14] LABS: Glucose Estimated Average 123 mg/dL (80-131); Hemoglobin A1C 5.9 % Hgb (4.8-6.0)
[2024-06-24 10:22] LABS: Vitamin D 25 Hydroxy Total 31.6 ng/mL (7.3-40.2)
[2024-06-24 10:44] LABS: Alanine Aminotransferase 21 U/L (10-49); Albumin, Serum 4.2 gm/dL (3.4-4.8); Albumin/Globulin Ratio 1.6 (1.2-2.2); Alkaline Phosphatase 106 U/L (46-116); Anion Gap 8 (7-16); Aspartate Amino Transferase 25 U/L (0-34); BUN/Creatinine Ratio 23 Ratio (12-20); Bilirubin,Total 0.4 mg/dL (0.3-1.2); Blood Urea Nitrogen 18 mg/dL (9-23); Calcium 9.3 mg/dL (8.3-10.6); Calcium (Corrected) 9.3 mg/dL (8.5-10.1); Carbon Dioxide 25.7 mMol/L (20.0-31.0); Cardiac Risk Estimate 2.9 RATIO (3.7-5.6); Chloride 110 mMol/L (98-107); Cholesterol 168 mg/dL (132-200); Creatinine (Component) 0.8 mg/dL (0.6-1.3); Free T4 (Free Thyroxine) 1.04 ng/dL (0.89-1.76); Globulin 2.7 gm/dL (2.3-3.5); Glucose 110 mg/dL (74-106); HDL Cholesterol 58 mg/dL (40-60); LDL Cholesterol,Calculated 90 mg/dL (0-130); Osmolality,Calculated 289 (275-295); Potassium 4.8 mMol/L (3.4-5.1); Sodium 144 mMol/L (136-145); Thyroid Stimulating Hormone 4.12 uIU/mL (0.55-4.78); Total Protein 6.9 gm/dL (5.7-8.2); Triglycerides 98 mg/dL (30-150); eGFR > 60 See Note
== END | disposition home or self-care (01) ==
LOC: COPL 07:58
PROVIDERS: PCP Internal Medicine; Referring Provider Internal Medicine; Visit Provider Internal Medicine
DX: Z00.00 Encounter for general adult medical examination without abnormal findings (principal); E55.9 Vitamin D deficiency, unspecified
CPT/HCPCS: 36415; 80053; 80061; 82306; 83036; 84439; 84443; 85025

== ENCOUNTER → 2024-06-25 | Outpatient (CLI) | payer BC, SELFPAY ==
[2024-06-24 09:44] LABS: Basophils % (Auto) 0 % (0-2.5); Eosinophils # (Auto) 0.1 Thou/mm3 (0.0-0.5); Eosinophils % (Auto) 3 % (0-10); Immature Granulocytes % (Auto) 0 % (0-0); Immature Granulocytes Auto 0.02 Thou/mm3 (0.00-0.00); Lymphocytes # (Auto) 0.9 Thou/mm3 (1.0-4.8); Lymphocytes % (Auto) 19 % (10-50); Mean Corpuscular HGB Conc 33.3 g/dl (31.0-37.0); Mean Corpuscular Hemoglobin 28.7 pg (25.0-35.0); Mean Corpuscular Volume 86 fL (80-100); Monocytes # (Auto) 0.4 Thou/mm3 (0.0-0.8); Monocytes % (Auto) 7 % (0-12); Neutrophils # (Auto) 3.5 Thou/mm3 (1.8-7.7); Neutrophils % (Auto) 71 % (37-80); Nucleated Red Blood Cell % 0 /100 WBC (0); Platelet Count 233 Thou/mm3 (140-440); RDW Standard Deviation 43.9 fL (36.4-46.3); Red Blood Count 4.53 Miln/mm3 (4.00-5.20)
[2024-06-24 09:51] LABS: INR 0.9 (0.9-1.3); Prothrombin Time 10.3 Seconds (9.0-12.2)
--- NOTE | 2024-06-25 10:30 | XR_ITS ---
Examinations: Ultrasound-guided percutaneous breast biopsy, right breast 6:00 nodule Right breast sonography limited INDICATIONS: Right breast sonogram May 22, 2023 BI-RADS 4 suspicious mass 6:00 position right breast. Exam date and time: June 25, 2024 1044 hours. Informed consent provided. Technique: A timeout was completed verifying correct patient, procedure, site, positioning, and special equipment if applicable Informed consent provided. The patient was placed in a supine position for the breast biopsy. Sonographic images of the breast were performed for localization of the suspicious nodule The patient's breast was prepped and draped in sterile fashion. Maximum sterile barrier technique, hand hygiene, ultrasound sterile technique 1% lidocaine was used to anesthetize the skin and breast adjacent to the suspicious nodule. Utilizing ultrasonographic guidance, 8 core biopsies were obtained of the suspicious nodule utilizing an 18-gauge BioPince needle. The specimens appears satisfactory. US guided breast biopsy marker placement. Estimated blood loss 3 cc. The patient tolerated the procedure well and there were no complications. Impression: Successful ultrasound-guided percutaneous breast biopsy, right breast 6:00 nodule. Ultrasound guided breast biopsy marker placement.
== END | disposition home or self-care (01) ==
LOC: SDIM 08:20 → SIRX 09:54
PROVIDERS: Radiology Diagnostic Radiology; PCP Internal Medicine; Referring Provider Internal Medicine; Visit Provider Internal Medicine
DX: D24.1 Benign neoplasm of right breast (principal); N60.11 Diffuse cystic mastopathy of right breast; R92.1 Mammographic calcification found on diagnostic imaging of breast; Z01.812 Encounter for preprocedural laboratory examination
CPT/HCPCS: 19083; 36415; 85025; 85610; 85730; A4648

== ENCOUNTER 2024-07-14 11:36 | Outpatient (RCR) | payer BC, SELFPAY ==
--- NOTE | 2024-07-21 11:10 | CTCFLWUP_ITS ---
Patient: CHRISTINA NEW : 1960 Page 3 of 3 FOLLOW UP NOTE telephone note DATE OF SERVICE: 07/14/2024 NAME: CHRISTINA NEW ACCOUNT: [id number] : 1960 AGE: 64 Patient was followed by telephone appointment today. Summary of telephone visit-- Anmol Vasquez, a female with stage 3 [id number] squamous cell cancer of the anus and iron deficiency anemia, presents for follow-up. Her history includes chemoradiation with mitomycin and 5-FU, and a left inguinal lymph node recurrence excised in July 2023. Recent colonoscopy was negative for new lesions. She reports forgetfulness possibly related to iron deficiency. A recent breast biopsy showed only fibrocystic changes without cancer. Plan includes Diann testing for minimal residual disease, CEA level, CT scan in July, blood work for iron studies, and follow-up in 2 months. Chief Complaint Follow-up for stage 3 [id number] squamous cell cancer of the anus, iron deficiency anemia History of Present Illness Anmol Vasquez, a patient with a history of stage 3 [id number] squamous cell cancer of the anus, presents for follow-up. She previously underwent chemoradiation and experienced a recurrence in the left inguinal lymph node, which was excised in July 2023. The patient's last colonoscopy in May was negative for new lesions. She denies any current rectal bleeding. The patient has been taking oral iron at home for iron deficiency anemia. She reports frequently forgetting information during phone conversations, which is concerning for potential cognitive effects related to iron deficiency. The patient recently underwent a breast biopsy on June 25, 2024, due to multiple nodules found on a diagnostic mammogram. She expresses happiness with the biopsy results, which showed fibrocystic changes and mild chronic inflammation without evidence of cancer. The patient is adherent to her prescribed oral iron supplementation. She is encouraged to maintain a plant-based diet and use daily stool softeners. The patient is instructed to monitor herself for any rectal bleeding, changes in stool caliber, or new lesions. Medications and Supplements - Oral iron - Taking at home for iron deficiency anemia - Patient advised not to take for 2-3 days before upcoming blood work - Mitomycin - Received as part of chemotherapy starting September 25, 2022 - 5-FU (5-Fluorouracil) - Received as part of chemotherapy starting September 25, 2022 - Also received with radiation at time of recurrence Review of Systems General: Positive for forgetfulness. Gastrointestinal: Negative for rectal bleeding, change in caliber of stools. Neurological: Positive for poor memory. Laboratory, Imaging, and Diagnostic Test Results - Colonoscopy (05/29/2024): Negative for any new lesions - PET-CT scan (October 2023): No pathological lymphadenopathy or hypermetabolic activity - CT scan (January 2024): No mediastinal lymphadenopathy or other concerning lesions - Diagnostic mammogram (date not specified): Showed probably benign lesions, multiple nodules - Right breast biopsy (07/14/2024): Fibrocystic changes and mild chronic inflammation, calcifications, negative for atypia in situ or invasive cancer - Previous results: - Iron: Low (February 2024, specific value not provided) Anmol Christina, female patient with history of stage 3 [id number] squamous cell cancer of the anus, status post chemoradiation with recurrence in left inguinal lymph node, presents for follow-up. Stage 3 [id number] squamous cell cancer of the anus, status post treatment Assessment: Patient has a history of stage 3 k16-odszeodw squamous cell cancer of the anus, treated with chemoradiation. She experienced recurrence in the left inguinal lymph node, which was excised in July 2023. Pathology showed metastatic, moderately differentiated, squamous cell cancer, [id number]. Patient received chemotherapy starting September 25, 2022, with mitomycin and 5- FU. At the time of recurrence, she received 5-FU with radiation. Recent imaging studies show no evidence of disease: PET-CT scan in October showed no pathological lymphadenopathy or hypermetabolic activity, and January CT scan showed no mediastinal lymphadenopathy or other concerning lesions. Last colonoscopy on May 29 was negative for any new lesions. Plan: - Order Diann test for minimal residual disease - Order CEA level - Schedule CT scan in July - Encourage plant-based diet and daily stool softeners - Instruct patient to monitor for rectal bleeding, change in stool caliber, or any new lesions - Follow up in 2 months Iron deficiency anemia Assessment: Patient has known iron deficiency anemia and has been taking oral iron supplements at home. There is concern about the patient's cognitive function, as she frequently forgets information during phone conversations. This may be related to iron deficiency. Plan: - Order blood work including ferritin, B12, folic acid, and LDH - Instruct patient to discontinue iron supplements 2-3 days before blood work - Evaluate need for IV iron based on lab results - Follow up on lab results Breast nodules Assessment: Patient had breast nodules that were evaluated with a diagnostic mammogram, which showed probably benign lesions but multiple nodules. A breast biopsy was completed on 06/25/2024. Right breast biopsy results showed fibrocystic changes and mild chronic inflammation with calcifications, negative for atypia, in situ, or invasive cancer. Plan: - No immediate intervention required based on benign biopsy results - Continue routine breast cancer screening as per guidelines BILLING AND COMPLIANCE: I reviewed external records from providers outside my specialty as summarized above. I spent a total of 50 minutes on this patient?s care on the day of their visit excluding time spent related to any billed procedures. This time includes time spent with the patient as well as time spent documenting in the medical record, reviewing patients records and tests, obtaining history, placing orders, communicating with other healthcare professionals, counseling the patient, family or caregiver, and/or care coordination for the diagnoses above. Electronically Signed by: Ramiro Rodriguez MD T: 11:08 AM CC: PCP: Sebastian Padgett Referring: Sebastian Padgett This document was completed utilizing speech recognition software. Grammatical errors, random word insertions, pronoun errors, and incomplete sentences are an occasional consequence of this system due to software limitations, ambient noise, and hardware issues. Any formal questions or concerns about the content, text or information contained within the body of this dictation should be directly addressed to the provider for clarification.
== END 2024-07-25 23:59 | disposition home or self-care (01) ==
LOC: SCTC 11:36
PROVIDERS: PCP Internal Medicine; Referring Provider Internal Medicine; Visit Provider Radiology Therapeutic Radiology
DX: C44.520 Squamous cell carcinoma of anal skin (principal); D50.9 Iron deficiency anemia, unspecified; Z92.21 Personal history of antineoplastic chemotherapy; Z92.3 Personal history of irradiation
CPT/HCPCS: 99212; G0463

== ENCOUNTER 2024-08-05 07:54 | Outpatient (RCR) | payer BC, SELFPAY | END 2024-08-24 23:59 | disposition home or self-care (01) | LOC: SCTC 07:54 | PROVIDERS: PCP Internal Medicine; Referring Provider Internal Medicine; Visit Provider Radiology Therapeutic Radiology | DX: C44.520 Squamous cell carcinoma of anal skin (principal) | CPT/HCPCS: 36591; A4216; J1642 ==

== ENCOUNTER → 2024-09-15 | Outpatient (CLI) | payer BC, SELFPAY ==
[2024-09-15 10:04] LABS: Basophils # (Auto) 0.0 Thou/mm3 (0.0-0.2); Basophils % (Auto) 1 % (0-2.5); Eosinophils # (Auto) 0.2 Thou/mm3 (0.0-0.5); Eosinophils % (Auto) 3 % (0-10); Hematocrit 41.1 % (36.0-46.0); Hemoglobin 13.7 g/dL (12.0-16.0); Immature Granulocytes Auto 0.01 Thou/mm3 (0.00-0.00); Immature Reticulocyte Fraction 4.7 % (3.0-15.9); Lymphocytes # (Auto) 1.0 Thou/mm3 (1.0-4.8); Lymphocytes % (Auto) 20 % (10-50); Mean Corpuscular HGB Conc 33.3 g/dl (31.0-37.0); Mean Corpuscular Hemoglobin 29.0 pg (25.0-35.0); Mean Corpuscular Volume 87 fL (80-100); Monocytes # (Auto) 0.3 Thou/mm3 (0.0-0.8); Monocytes % (Auto) 7 % (0-12); Neutrophils # (Auto) 3.4 Thou/mm3 (1.8-7.7); Neutrophils % (Auto) 69 % (37-80); Nucleated Red Blood Cell # 0.00 Thou/mm3 (0.00-0.00); Nucleated Red Blood Cell % 0 /100 WBC (0); Platelet Count 235 Thou/mm3 (140-440); RDW Standard Deviation 45.1 fL (36.4-46.3); Red Blood Count 4.72 Miln/mm3 (4.00-5.20); Reticulocyte % (Auto) 0.9 % (0.5-1.5); Reticulocyte Absolute Auto 41.5 Biln/L (25.0-75.0); Reticulocyte Hgb Content 33.9 pg (28.0-35.0); White Blood Count 5.0 Thou/mm3 (3.6-11.0)
[2024-09-15 10:37] LABS: Ferritin 80 ng/mL (7.3-270.7); Iron 83 mcg/dL (50-170); Percent Iron Saturation 26 % (20-55); Total Iron Binding Capacity 317 mcg/dL (250-425); Unsaturated Iron Binding 234 (225-295)
[2024-09-15 10:38] LABS: Alanine Aminotransferase 12 U/L (10-49); Albumin, Serum 4.6 gm/dL (3.4-4.8); Albumin/Globulin Ratio 1.6 (1.2-2.2); Alkaline Phosphatase 83 U/L (46-116); Anion Gap 10 (7-16); Aspartate Amino Transferase 21 U/L (0-34); BUN/Creatinine Ratio 16 Ratio (12-20); Bilirubin,Total 0.7 mg/dL (0.3-1.2); Blood Urea Nitrogen 16 mg/dL (9-23); Calcium 9.5 mg/dL (8.3-10.6); Calcium (Corrected) 9.5 mg/dL (8.5-10.1); Carbon Dioxide 25.7 mMol/L (20.0-31.0); Chloride 105 mMol/L (98-107); Creatinine (Component) 1.0 mg/dL (0.6-1.3); Globulin 2.9 gm/dL (2.3-3.5); Glucose 93 mg/dL (74-106); LDH (Lactate Dehydrogenase) 192 U/L (120-246); Osmolality,Calculated 282 (275-295); Potassium 4.2 mMol/L (3.4-5.1); Sodium 141 mMol/L (136-145); Total Protein 7.5 gm/dL (5.7-8.2); eGFR > 60 See Note
[2024-09-15 11:21] LABS: Carcinoembryonic Antigen < 0.5 ng/mL (0.0-5.0); Folate > 24.00 ng/mL (>5.38); Vitamin B12 366 pg/mL (211-911)
[2024-09-21 06:53] LABS: Haptoglobin* 143 mg/dL (43-212)
== END | disposition home or self-care (01) ==
LOC: SCTO 09:01
PROVIDERS: PCP Internal Medicine; Referring Provider Internal Medicine Hematology & Oncology; Visit Provider Internal Medicine Hematology & Oncology
DX: C44.520 Squamous cell carcinoma of anal skin (principal)
CPT/HCPCS: 36415; 80053; 82378; 82607; 82728; 82746; 83010; 83540; 83550; 83615; 85025; 85046

== ENCOUNTER 2024-09-16 13:50 | Outpatient (RCR) | payer BC, SELFPAY ==
--- NOTE | 2024-09-21 06:07 | CTCFLWUP_ITS ---
Patient: CHRISTINA NEW : 1960 Page 2 of 4 FOLLOW UP NOTE DATE OF SERVICE: 09/16/2024 NAME: CHRISTINA NEW ACCOUNT: [id number] : 1960 AGE: 64 INTERVAL HISTORY: Christina, a patient with history of anal cancer, presented for follow-up reporting significant improvement in bowel-related symptoms and overall health. She has lost over 25 pounds through lifestyle changes including daily walking, Kegel exercises, dietary modifications, and intermittent fasting. Her fecal incontinence has resolved. Recent CEA level was 0.99, while PET CT, CT scan, and colonoscopy were negative. Patient have positive Nahed testing and is concerning for recurrence. Plan includes CT scan to evaluate previously observed nodules, follow-up in 4 weeks. 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 5-FU Mitomycin-C radiation 09/06/2022 through 12/07/2022 5940 centigray completed 12/07/2022. Recurrence left inguinal region initially suspected by PET and confirmed by biopsy 07/30/2023 left inguinal region. Additional radiotherapy to left groin 5-FU sensation 5040 completed 10/24/2023. Posttreatment PET 11/19/2023 no pathologic groin adenopathy. TREATMENT HISTORY: Care?Plan Start?Date Cycle Day Intent VENOfer?200mg?IV?wkly?for?10?weeks 09/18/2022 1 70 Curative?(primary) Mitomycin?10mg/m*2,?5FU?1000mg/m*2/day 09/25/2022 1 33 Curative?(primary) 5FU?225?mg/m*2/day?5?day?civ?with?xrt?1 09/02/2023 1 7 Definitive HISTORY OF PRESENT ILLNESS: OTHER MEDICAL HISTORY/CONDITIONS: ANAL CA ANEMIA HYPERLIPIDEMIA DEPRESSION FAITH -10 YRS AGO CHOLECYSTECTOMY - 15 YRS AGO FAMILY HISTORY: Mother:?LUNG SOCIAL HISTORY: Occupational?History:?RETIRED Education?Level:?Completed High School Marital?Status:? 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 Lipitor - 20 mg Daily 2. meloxicam - Daily 3. omeprazole - 20 mg Daily 4. Zoloft - 100 mg Daily Medications Last Reconciled by Emeli Mercer MA on 09/16/2024 ALLERGIES: No Known Allergies REVIEW OF SYSTEMS: A complete 14-point review of systems was performed and is negative except as noted in interval history. PHYSICAL EXAMINATION: VITAL SIGNS: Temperature?97, B/P?107/76, Oxygen?Saturation?96% Weight?162?lbs PAIN: 0 - No pain ECOG Performance Status: 0 - Asymptomatic and fully active GENERAL APPEARANCE: Appears well, in no apparent distress, appropriately interactive. HEENT: Normocephalic, no temporal wasting, normal conjunctiva, no scleral icterus, normal hearing, lips without lesions, neck normal range of motion. CARDIOVASCULAR: Not assessed. PULMONARY: Normal respiratory effort, no respiratory distress or use of accessory muscles, speaking in full sentences, no tachypnea. EXTREMITIES: No pedal edema or cyanosis. SKIN: Normal skin appearance. NEUROLOGIC: Alert and oriented x4. PSHYCHIATRIC: Appropriate affect, mood normal, behavior normal, intact thought and speech. LABORATORY DATA: I have personally reviewed and interpreted each of the patient?s relevant lab tests, abnormal findings are below: Date 09/15/24 ??WHITE?BLOOD?COUNT?(Thou/mm3) 5.0 ??RED?BLOOD?COUNT?(Miln/mm3) 4.72 ??HEMOGLOBIN?(gm/dl) 13.7 ??HEMATOCRIT?(%) 41.1 ??PLATELET?COUNT?(Thou/mm3) 235 ??NEUTROPHILS?%,?AUTO?(%) 69 ??LYMPH?%,?AUTO?(%) 20 ??NEUTROPHILS,?AUTO?(Thou/mm3) 3.4 ??CEA?(O*)?(ng/ml) <?0.5 ??RETICULOCYTE?ABSOLUTE?AUTO?(Biln/L) 41.5 ??TOTAL?IRON?BINDING?CAP?(S*)?(mcg/dL) 317 ??UNBOUND?IBC?(mcg/dL) 234 ASSESSMENT/PLAN: Christina, a patient with a history of anal cancer, presents for follow-up after significant lifestyle changes and recent diagnostic testing. Anal Cancer Assessment: Patient has a history of anal cancer. Recent blood test revealed a tumor marker (CEA) level of 0.99, indicating the presence of anal cancer. Previous imaging studies, including a PET CT scan in October and a CT scan in January, were negative. A colonoscopy in January was also negative. The clinician notes that the blood test for cancer markers is highly sensitive and specific. Plan: - Order CT scan to evaluate previously observed nodules - Monitor CEA levels every 3 months - Follow-up appointment in [address] scan Bowel Dysfunction Assessment: Patient reports significant improvement in bowel function following lifestyle changes. She has lost over 25 pounds (from 190+ to 160s), implemented dietary changes (fresh fruits, vegetables, chicken, yogurt, intermittent fasting), and increased physical activity (daily walking, Kegel exercises). A recent rectal exam by another physician indicated strengthening of pelvic floor muscles. Patient reports resolution of fecal incontinence ( accidents ). Plan: - Continue current lifestyle modifications, including diet and exercise regimen - Encourage maintenance of weight loss and physical activity Breast cysts Reviewed mammogram and ultrasound Biopsy negative RETURN TO CLINIC: I reviewed the diagnosis, prognosis, and recommended treatment/procedure options with the patient (and/or their legal instruments sales representative), including the potential benefits, risks, side effects and alternative therapies. We also discussed the option of no treatment and the possibility of clinical trial participation, if applicable. All questions were addressed, and they demonstrated understanding. They provided informed consent to proceed with the proposed plan of care. BILLING AND COMPLIANCE: I reviewed external records from providers outside my specialty as summarized above. I spent a total of 50 minutes on this patient?s care on the day of their visit excluding time spent related to any billed procedures. This time includes time spent with the patient as well as time spent documenting in the medical record, reviewing patients records and tests, obtaining history, placing orders, communicating with other healthcare professionals, counseling the patient, family or caregiver, and/or care coordination for the diagnoses above. Electronically Signed by: Ramiro Rodriguez MD T: 6:05 AM CC: PCP: Sebastian Padgett Referring: Sebastian Padgett This document was completed utilizing speech recognition software. Grammatical errors, random word insertions, pronoun errors, and incomplete sentences are an occasional consequence of this system due to software limitations, ambient noise, and hardware issues. Any formal questions or concerns about the content, text or information contained within the body of this dictation should be directly addressed to the provider for clarification.
== END 2024-09-24 23:59 | disposition home or self-care (01) ==
LOC: SCTC 13:50
PROVIDERS: PCP Internal Medicine; Referring Provider Internal Medicine; Visit Provider Internal Medicine Hematology & Oncology
DX: C44.520 Squamous cell carcinoma of anal skin (principal); N60.09 Solitary cyst of unspecified breast
CPT/HCPCS: 99212; G0463

== ENCOUNTER → 2024-10-13 | Outpatient (CLI) | payer BC, SELFPAY ==
--- NOTE | 2024-10-13 | XR_ITS ---
Examination: CT chest with intravenous contrast CT abdomen with intravenous contrast CT pelvis with intravenous contrast examination: CT chest without intravenous contrast. CT abdomen without intravenous contrast. CT pelvis without intravenous contrast. 2-D coronal and sagittal reconstructions Time of exam: October 13, 2024 0901 hours, comparison CT chest abdomen pelvis January 29, 2024, PET CT scan 11/19/2023 INDICATIONS: Diagnosis anal cancer 2022, rectal bleeding one year, abnormal liver function tests on laboratory examination 2 months ago, specific diagnosis squamous cell carcinoma anal skin CTDI: vol (mGy) : 23.2 DLP: (mGycm): 1111 Technique: Multiple axial images of the chest, abdomen and pelvis with intravenous contrast, 3.0 mm slice thickness. Images obtained post intravenous injection Isovue 370 60 cc. 2-D sagittal and coronal reconstructions. Low dose protocols were performed. One or more of the following dose reduction techniques were used; automated exposure control, adjustment of the mA and/or KV according to patient size, use of iterative reconstruction technique. Findings: No thoracic aortic aneurysmal dilatation No pulmonary artery filling defects No interval mediastinal lymphadenopathy. On this study 2 mm pulmonary nodule left upper lobe, image 117, noted in retrospect on the CT chest January 29, 2024 No pneumonia or pulmonary edema Retrocardiac gastric hernia. No interval liver or splenic lesions Absent gallbladder No pancreatic or adrenal mass No enhancing solid renal mass lesion. No interval abdominal or pelvic lymphadenopathy Normal appendix Colonic diverticulosis, no diverticulitis No bladder mass No rectal wall thickening No interval osseous metastatic disease Surgical clips left groin IMPRESSION: No interval metastatic disease
== END | disposition home or self-care (01) ==
PROVIDERS: Referring Provider Internal Medicine Hematology & Oncology; Visit Provider Internal Medicine Hematology & Oncology
DX: C44.520 Squamous cell carcinoma of anal skin (principal)
CPT/HCPCS: 71270; 74178; A4649; Q9967

== ENCOUNTER 2024-10-21 10:30 | Outpatient (RCR) | payer BC, SELFPAY ==
--- NOTE | 2025-03-01 02:03 | CTCFLWUP_ITS ---
Patient: CHRISTINA NEW : 1960 Page 2 of 4 FOLLOW UP NOTE DATE OF SERVICE: 10/21/2024 NAME: CHRISTINA NEW ACCOUNT: [id number] : 1960 AGE: 64 INTERVAL HISTORY: Christina, a patient with history of anal cancer, presented for follow-up reporting significant improvement in bowel-related symptoms and overall health. She has lost over 25 pounds through lifestyle changes including daily walking, Kegel exercises, dietary modifications, and intermittent fasting. Her fecal incontinence has resolved. Recent CEA level was 0.99, while PET CT, CT scan, and colonoscopy were negative. 10/13/2024 CT scan is completed and do not reveal any cancer ONCOLOGY HISTORY:?[facility] Hx? 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 5-FU Mitomycin-C radiation 09/06/2022 through 12/07/2022 5940 centigray completed 12/07/2022. Recurrence left inguinal region initially suspected by PET and confirmed by biopsy 07/30/2023 left inguinal region. Additional radiotherapy to left groin 5-FU sensation 5040 completed 10/24/2023. Posttreatment PET 11/19/2023 no pathologic groin adenopathy. TREATMENT HISTORY: Care?Plan Start?Date Cycle Day Intent VENOfer?200mg?IV?wkly?for?10?weeks 09/18/2022 1 70 Curative?(primary) Mitomycin?10mg/m*2,?5FU?1000mg/m*2/day 09/25/2022 1 33 Curative?(primary) 5FU?225?mg/m*2/day?5?day?civ?with?xrt?1 09/02/2023 1 7 Definitive VENOfer?200mg?IV?wkly?for?10?weeks 01/13/2025 1 70 Palliative HISTORY OF PRESENT ILLNESS: OTHER MEDICAL HISTORY/CONDITIONS: ANAL CA ANEMIA HYPERLIPIDEMIA DEPRESSION FAITH -10 YRS AGO CHOLECYSTECTOMY - 15 YRS AGO FAMILY HISTORY: Mother:?LUNG SOCIAL HISTORY: Occupational?History:?RETIRED Education?Level:?Completed High School Marital?Status:? 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 omeprazole - 20 mg Daily?[place]ra Meds? Medications Last Reconciled by Tequila Oliveira MD on 01/13/2025 ALLERGIES: No Known Allergies REVIEW OF SYSTEMS: A complete 14-point review of systems was performed and is negative except as noted in interval history. PHYSICAL EXAMINATION:?[facility] PE? VITAL SIGNS: Temperature?97.8, B/P?110/74, Oxygen?Saturation?94% Weight?156?lbs PAIN: 0 - No pain ECOG Performance Status: 0 - Asymptomatic and fully active GENERAL APPEARANCE: Appears well, in no apparent distress, appropriately interactive. HEENT: Normocephalic, no temporal wasting, normal conjunctiva, no scleral icterus, normal hearing, lips without lesions, neck normal range of motion. CARDIOVASCULAR: Not assessed. PULMONARY: Normal respiratory effort, no respiratory distress or use of accessory muscles, speaking in full sentences, no tachypnea. EXTREMITIES: No pedal edema or cyanosis. SKIN: Normal skin appearance. NEUROLOGIC: Alert and oriented x4. PSHYCHIATRIC: Appropriate affect, mood normal, behavior normal, intact thought and speech. LABORATORY DATA: I have personally reviewed and interpreted each of the patient?s relevant lab tests, abnormal findings are below: Date 01/12/25 01/18/25 ??WHITE?BLOOD?COUNT?(Thou/mm3) 4.4 ? ??RED?BLOOD?COUNT?(Miln/mm3) 4.28 ? ??HEMOGLOBIN?(gm/dl) 12.9 ? ??HEMATOCRIT?(%) 38.2 ? ??PLATELET?COUNT?(Thou/mm3) 238 ? ??NEUTROPHILS?%,?AUTO?(%) 65 ? ??LYMPH?%,?AUTO?(%) 25 ? ??NEUTROPHILS,?AUTO?(Thou/mm3) 2.8 ? ??GLUCOSE,RANDOM?(mg/dL) 84 ? ??BLOOD?UREA?NITROGEN?(mg/dL) 11 ? ??CREATININE?(mg/dL) 0.90 ? ??SODIUM?(mmol/L) 143 ? ??POTASSIUM?(mmol/L) 4.2 ? ??CHLORIDE?(mmol/L) 108?H ? ??CrCl?(CandG)?(ml/min) 65.87 ? ??AST/SGOT?(Unit/L) 20 ? ??ALT/SGPT?(Unit/L) 9?L ? ??ALKALINE?PHOSPHATASE?(Unit/L) 68 ? ??BILIRUBIN,?TOTAL?(mg/dL) 0.5 ? ??PROTEIN?TOTAL?(gm/dl) 6.7 ? ??ALBUMIN,?SERUM?(gm/dl) 4.5 ? ??GLOBULIN?(gm/dl) 2.2?L ? ??ALBUMIN/GLOBULIN?RATIO 2.0 ? ??CALCIUM,?SERUM?(mg/dL) 9.4 ? ??CALCIUM?SERUM?(CORRECTED)?(mg/dL) 9.4 ? ??CEA?(O*)?(ng/ml) <?0.0?L ? ??TOTAL?IRON?BINDING?CAP?(S*)?(mcg/dL) ? 338 ??UNBOUND?IBC?(mcg/dL) ? 283 ASSESSMENT/PLAN:?Sharon Rodriguez Assessment/Plan? Christina, a patient with a history of anal cancer, presents for follow-up after significant lifestyle changes and recent diagnostic testing. Anal Cancer Assessment: Patient has a history of anal cancer. Recent blood test revealed a tumor marker (CEA) level of 0.99, indicating the presence of anal cancer. Previous imaging studies, including a PET CT scan in October and a CT scan in January, were negative. A colonoscopy in January was also negative. The clinician notes that the blood test for cancer markers is highly sensitive and specific. CT scan is negative Continue to monitor with Nahed Patient's 2 mm nodule in the lung is likely metastatic Will repeat scan in 3 to 4 months and if show progressive in size we will do radiation Bowel Dysfunction Assessment: Patient reports significant improvement in bowel function following lifestyle changes. She has lost over 25 pounds (from 190+ to 160s), implemented dietary changes (fresh fruits, vegetables, chicken, yogurt, intermittent fasting), and increased physical activity (daily walking, Kegel exercises). A recent rectal exam by another physician indicated strengthening of pelvic floor muscles. Patient reports resolution of fecal incontinence ( accidents ). Plan: - Continue current lifestyle modifications, including diet and exercise regimen - Encourage maintenance of weight loss and physical activity Breast cysts Reviewed mammogram and ultrasound Biopsy negative RETURN TO CLINIC: I reviewed the diagnosis, prognosis, and recommended treatment/procedure options with the patient (and/or their legal inbound customer service representative), including the potential benefits, risks, side effects and alternative therapies. We also discussed the option of no treatment and the possibility of clinical trial participation, if applicable. All questions were addressed, and they demonstrated understanding. They provided informed consent to proceed with the proposed plan of care. BILLING AND COMPLIANCE: I reviewed external records from providers outside my specialty as summarized above. I spent a total of 50 minutes on this patient?s care on the day of their visit excluding time spent related to any billed procedures. This time includes time spent with the patient as well as time spent documenting in the medical record, reviewing patients records and tests, obtaining history, placing orders, communicating with other healthcare professionals, counseling the patient, family or caregiver, and/or care coordination for the diagnoses above. Electronically Signed by: Ramiro Rodriguez MD T: 2:00 AM CC: PCP: Sebastian Padgett Referring: Sebastian Padgett This document was completed utilizing speech recognition software. Grammatical errors, random word insertions, pronoun errors, and incomplete sentences are an occasional consequence of this system due to software limitations, ambient noise, and hardware issues. Any formal questions or concerns about the content, text or information contained within the body of this dictation should be directly addressed to the provider for clarification.
== END 2024-10-25 23:59 | disposition home or self-care (01) ==
LOC: SCTC 10:30
PROVIDERS: PCP Internal Medicine; Referring Provider Internal Medicine; Visit Provider Internal Medicine Hematology & Oncology
DX: Z08 Encounter for follow-up examination after completed treatment for malignant neoplasm (principal); Z85.828 Personal history of other malignant neoplasm of skin; Z87.19 Personal history of other diseases of the digestive system
CPT/HCPCS: 99212; G0463

== ENCOUNTER 2024-11-10 08:24 | Outpatient (RCR) | payer BC, SELFPAY | END 2024-11-24 23:59 | disposition home or self-care (01) | LOC: SCTC 08:24 | PROVIDERS: PCP Internal Medicine; Referring Provider Internal Medicine; Visit Provider Internal Medicine Hematology & Oncology | DX: C44.520 Squamous cell carcinoma of anal skin (principal); N60.09 Solitary cyst of unspecified breast | CPT/HCPCS: 36591; A4216; J1642 ==

== ENCOUNTER → 2024-11-20 | Outpatient (CLI) | payer BC, SELFPAY ==
--- NOTE | 2024-11-20 13:15 | XR_ITS ---
Examination: Diagnostic digital mammography, unilateral, left Computer aided detection 3-D breast Tomosynthesis, unilateral Date and time of exam: November 20, 2024, 1322 hours, mammogram May 21, 2024 INDICATIONS: May 21, 2024 mammogram focal asymmetry inner left breast Technique: Nonmagnified MLO, CC views of the left breast have been obtained, reconstructed from 3-D Tomosynthesis images. R2 computer aided detection program utilized for evaluation of suspicious masses and/or abnormal calcifications. 3-D Tomosynthesis images obtained. Findings: The breast is heterogeneously dense, which may obscure small masses 6 mm nodule upper slightly outer left breast posterior depth Impression: BI-RADS category 0: Incomplete: Need additional imaging evaluation This patient should return for repeat left breast sonography with specific attention to the upper inner quadrant left breast
== END | disposition home or self-care (01) ==
PROVIDERS: PCP Internal Medicine; Referring Provider Internal Medicine; Visit Provider Internal Medicine
DX: R92.8 Other abnormal and inconclusive findings on diagnostic imaging of breast (principal)
CPT/HCPCS: 77061; 77065; G0279

== ENCOUNTER → 2024-11-26 | Outpatient (CLI) | payer BC, SELFPAY ==
--- NOTE | 2024-11-26 10:00 | XR_ITS ---
Examination: Breast ultrasound, unilateral, left complete Date and time of exam: November 26, 2024, 1032 hours, comparison June 25, 2024, May 21, 2024, BI-RADS 4 suspicious nodule 6:00 position left breast on ultrasound May 21, 2024, biopsied 16/03/2024, negative biopsy, mammogram 11/20/2024 6 mm nodule upper slightly outer left breast posterior depth Technique: Real-time cramer scale ultrasonographic imaging performed left breast including all 4 quadrants as well as nipple retroareolar and axillary region. Findings: 8:00 cyst 4 x 4 millimeter 3:00 breast biopsy marker left breast but no nodule depicted IMPRESSION: BI-RADS Category 2: Benign findings
== END | disposition home or self-care (01) ==
PROVIDERS: PCP Internal Medicine; Referring Provider Internal Medicine; Visit Provider Internal Medicine
DX: N63.20 Unspecified lump in the left breast, unspecified quadrant (principal)
CPT/HCPCS: 76641

== ENCOUNTER 2025-01-18 11:09 | Outpatient (RCR) | payer BC, SELFPAY ==
[2025-01-12 09:19] LABS: Basophils # (Auto) 0.0 Thou/mm3 (0.0-0.2); Basophils % (Auto) 1 % (0-2.5); Eosinophils # (Auto) 0.1 Thou/mm3 (0.0-0.5); Eosinophils % (Auto) 2 % (0-10); Hematocrit 38.2 % (36.0-46.0); Hemoglobin 12.9 g/dL (12.0-16.0); Immature Granulocytes Auto 0.01 Thou/mm3 (0.00-0.00); Lymphocytes # (Auto) 1.1 Thou/mm3 (1.0-4.8); Lymphocytes % (Auto) 25 % (10-50); Mean Corpuscular HGB Conc 33.8 g/dl (31.0-37.0); Mean Corpuscular Hemoglobin 30.1 pg (25.0-35.0); Mean Corpuscular Volume 89 fL (80-100); Monocytes # (Auto) 0.3 Thou/mm3 (0.0-0.8); Monocytes % (Auto) 7 % (0-12); Neutrophils # (Auto) 2.8 Thou/mm3 (1.8-7.7); Neutrophils % (Auto) 65 % (37-80); Nucleated Red Blood Cell # 0.00 Thou/mm3 (0.00-0.00); Nucleated Red Blood Cell % 0 /100 WBC (0); Platelet Count 238 Thou/mm3 (140-440); RDW Standard Deviation 42.6 fL (36.4-46.3); Red Blood Count 4.28 Miln/mm3 (4.00-5.20); White Blood Count 4.4 Thou/mm3 (3.6-11.0)
[2025-01-12 09:35] LABS: Carcinoembryonic Antigen < 0.0 ng/mL (0.0-5.0)
[2025-01-12 09:50] LABS: Alanine Aminotransferase 9 U/L (10-49); Albumin, Serum 4.5 gm/dL (3.4-4.8); Albumin/Globulin Ratio 2.0 (1.2-2.2); Alkaline Phosphatase 68 U/L (46-116); Anion Gap 11 (7-16); Aspartate Amino Transferase 20 U/L (0-34); BUN/Creatinine Ratio 12 Ratio (12-20); Bilirubin,Total 0.5 mg/dL (0.3-1.2); Blood Urea Nitrogen 11 mg/dL (9-23); Calcium 9.4 mg/dL (8.3-10.6); Calcium (Corrected) 9.4 mg/dL (8.5-10.1); Carbon Dioxide 24.3 mMol/L (20.0-31.0); Chloride 108 mMol/L (98-107); Creatinine (Component) 0.9 mg/dL (0.6-1.3); Globulin 2.2 gm/dL (2.3-3.5); Glucose 84 mg/dL (74-106); Osmolality,Calculated 283 (275-295); Potassium 4.2 mMol/L (3.4-5.1); Sodium 143 mMol/L (136-145); Total Protein 6.7 gm/dL (5.7-8.2); eGFR > 60 See Note
--- NOTE | 2025-01-13 14:53 | CTCFLWUP_ITS ---
Patient: CHRISTINA NEW : 1960 Page 2 of 4 FOLLOW UP NOTE DATE OF SERVICE: 01/13/2025 NAME: CHRISTINA ENW ACCOUNT: [id number] : 1960 AGE: 64 INTERVAL HISTORY: Patient is here accompanied by her daughter. Patient is concerned as she has persistent anal bleed after every bowel movement. Patient Signatera testing is showing progression in cancer with elevation of CT DNA. Last CT scan in September showed 2 mm lung nodule. 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 5-FU Mitomycin-C radiation 09/06/2022 through 12/07/2022 5940 centigray completed 12/07/2022. Recurrence left inguinal region initially suspected by PET and confirmed by biopsy 07/30/2023 left inguinal region. Additional radiotherapy to left groin 5-FU sensation 5040 completed 10/24/2023. Posttreatment PET 11/19/2023 no pathologic groin adenopathy. TREATMENT HISTORY: Care?Plan Start?Date Cycle Day Intent VENOfer?200mg?IV?wkly?for?10?weeks 09/18/2022 1 70 Curative?(primary) Mitomycin?10mg/m*2,?5FU?1000mg/m*2/day 09/25/2022 1 33 Curative?(primary) 5FU?225?mg/m*2/day?5?day?civ?with?xrt?1 09/02/2023 1 7 Definitive HISTORY OF PRESENT ILLNESS: OTHER MEDICAL HISTORY/CONDITIONS: ANAL CA ANEMIA HYPERLIPIDEMIA DEPRESSION FAITH -10 YRS AGO CHOLECYSTECTOMY - 15 YRS AGO FAMILY HISTORY: Mother:?LUNG SOCIAL HISTORY: Occupational?History:?RETIRED Education?Level:?Completed High School Marital?Status:? 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 omeprazole - 20 mg Daily Medications Last Reconciled by Tequila Oliveira MD on 01/13/2025 ALLERGIES: No Known Allergies REVIEW OF SYSTEMS: A complete 14-point review of systems was performed and is negative except as noted in interval history. PHYSICAL EXAMINATION: VITAL SIGNS: PAIN: 0 - No pain GENERAL APPEARANCE: Appears well, in no apparent distress, appropriately interactive. HEENT: Normocephalic, no temporal wasting, normal conjunctiva, no scleral icterus, normal hearing, lips without lesions, neck normal range of motion. CARDIOVASCULAR: Not assessed. PULMONARY: Normal respiratory effort, no respiratory distress or use of accessory muscles, speaking in full sentences, no tachypnea. EXTREMITIES: No pedal edema or cyanosis. SKIN: Normal skin appearance. NEUROLOGIC: Alert and oriented x4. PSHYCHIATRIC: Appropriate affect, mood normal, behavior normal, intact thought and speech. LABORATORY DATA: I have personally reviewed and interpreted each of the patient?s relevant lab tests, abnormal findings are below: Date 09/15/24 01/12/25 ??WHITE?BLOOD?COUNT?(Thou/mm3) ? 4.4 ??RED?BLOOD?COUNT?(Miln/mm3) ? 4.28 ??HEMOGLOBIN?(gm/dl) ? 12.9 ??HEMATOCRIT?(%) ? 38.2 ??PLATELET?COUNT?(Thou/mm3) ? 238 ??NEUTROPHILS?%,?AUTO?(%) ? 65 ??LYMPH?%,?AUTO?(%) ? 25 ??NEUTROPHILS,?AUTO?(Thou/mm3) ? 2.8 ??GLUCOSE,RANDOM?(mg/dL) ? 84 ??BLOOD?UREA?NITROGEN?(mg/dL) ? 11 ??CREATININE?(mg/dL) ? 0.90 ??SODIUM?(mmol/L) ? 143 ??POTASSIUM?(mmol/L) ? 4.2 ??CHLORIDE?(mmol/L) ? 108?H ??CrCl?(CandG)?(ml/min) ? 65.87 ??AST/SGOT?(Unit/L) ? 20 ??ALT/SGPT?(Unit/L) ? 9?L ??ALKALINE?PHOSPHATASE?(Unit/L) ? 68 ??BILIRUBIN,?TOTAL?(mg/dL) ? 0.5 ??PROTEIN?TOTAL?(gm/dl) ? 6.7 ??ALBUMIN,?SERUM?(gm/dl) ? 4.5 ??GLOBULIN?(gm/dl) ? 2.2?L ??ALBUMIN/GLOBULIN?RATIO ? 2.0 ??CALCIUM,?SERUM?(mg/dL) ? 9.4 ??CALCIUM?SERUM?(CORRECTED)?(mg/dL) ? 9.4 ??CEA?(O*)?(ng/ml) ? <?0.0?L ??RETICULOCYTE?ABSOLUTE?AUTO?(Biln/L) 41.5 ? ASSESSMENT/PLAN: Christina, a patient with a history of anal cancer, presents for follow-up after significant lifestyle changes and recent diagnostic testing. Anal Cancer Assessment: Patient has a history of anal cancer. Recent blood test revealed a tumor marker (CEA) level of 0.99, indicating the presence of anal cancer. Previous imaging studies, including a PET CT scan in October and a CT scan in January, were negative. A colonoscopy in January was also negative. The clinician notes that the blood test for cancer markers is highly sensitive and specific. CT scan is negative CAT DNA is progressing Patient's 2 mm nodule in the lung is likely metastatic Will repeat CT scan with IV contrast to evaluate lung nodule and other metastatic disease Ordered CDX on the old lymph node to evaluate for PD-L1 tumor mutation burden to see Of therapy Bowel Dysfunction Assessment: Patient reports significant improvement in bowel function following lifestyle changes. She has lost over 25 pounds (from 190+ to 160s), implemented dietary changes (fresh fruits, vegetables, chicken, yogurt, intermittent fasting), and increased physical activity (daily walking, Kegel exercises). A recent rectal exam by another physician indicated strengthening of pelvic floor muscles. Patient reports resolution of fecal incontinence ( accidents ). Plan: - Continue current lifestyle modifications, including diet and exercise regimen - Encourage maintenance of weight loss and physical activity Breast cysts Reviewed mammogram and ultrasound Biopsy negative ORDERS: Order # Description [id number] CT Scan + Chest + With W/O Contrast RETURN TO CLINIC: I reviewed the diagnosis, prognosis, and recommended treatment/procedure options with the patient (and/or their legal transportation services representative), including the potential benefits, risks, side effects and alternative therapies. We also discussed the option of no treatment and the possibility of clinical trial participation, if applicable. All questions were addressed, and they demonstrated understanding. They provided informed consent to proceed with the proposed plan of care. BILLING AND COMPLIANCE: I reviewed external records from providers outside my specialty as summarized above. I spent a total of 50 minutes on this patient?s care on the day of their visit excluding time spent related to any billed procedures. This time includes time spent with the patient as well as time spent documenting in the medical record, reviewing patients records and tests, obtaining history, placing orders, communicating with other healthcare professionals, counseling the patient, family or caregiver, and/or care coordination for the diagnoses above. Electronically Signed by: Ramiro Rodriguez MD T: 2:51 PM CC: PCP: Sebastian Padgett Referring: Sebastian Padgett This document was completed utilizing speech recognition software. Grammatical errors, random word insertions, pronoun errors, and incomplete sentences are an occasional consequence of this system due to software limitations, ambient noise, and hardware issues. Any formal questions or concerns about the content, text or information contained within the body of this dictation should be directly addressed to the provider for clarification.
[2025-01-18 13:07] LABS: Ferritin 49 ng/mL (7.3-270.7); Iron 55 mcg/dL (50-170); Percent Iron Saturation 16 % (20-55); Total Iron Binding Capacity 338 mcg/dL (250-425); Unsaturated Iron Binding 283 (225-295)
[2025-01-18 13:08] LABS: Folate > 24.00 ng/mL (>5.38); Vitamin B12 370 pg/mL (211-911)
== END 2025-01-24 23:59 | disposition home or self-care (01) ==
LOC: SCTC 11:09
PROVIDERS: PCP Internal Medicine; Referring Provider Internal Medicine; Visit Provider Internal Medicine Hematology & Oncology
DX: C44.520 Squamous cell carcinoma of anal skin (principal)
CPT/HCPCS: 36591; 80053; 82378; 82607; 82728; 82746; 83540; 83550; 85025; 99212; A4216; J1642; G0463